=== PATIENT | female | born 1935 | race African-American/Black ===

== ENCOUNTER 2018-09-16 08:30 | Day surgery (SDC) | payer OTHER ==
[2018-09-16 09:01] LABS: Potassium 4.2 mmol/L (3.5-5.1)
[2018-09-16] MEDS ORDERED: NA CHLORIDE 0.9% 1,000 ML ONE ×2 (09:01→09:10)
[2018-09-16] MEDS ORDERED: PROPOFOL 200 MG/20 ML VIAL IV ONE (09:16)
[2018-09-16] MEDS ORDERED: LIDOCAINE 2% MPF 5 ML VIAL ONE (09:17)
[2018-09-16] MEDS ORDERED: MIDAZOLAM HCL 2 MG/2 ML INJ ONE (09:17)
[2018-09-16] MEDS ORDERED: FENTANYL CITR 100 MCG/2 ML ONE (09:17)
[2018-09-16 09:58] LABS: Absolute Lymphocytes (CBC) 1.5 K/uL (0.7-4.9); Absolute Monocytes 0.5 K/uL (0.1-1.3); Absolute Neutrophil 2.7 K/uL (1.8-8.0); Basophils % 0.4 % (0-1.3); Eosinophils % 1.3 % (0-4.4); Hematocrit 34.7 % (36.0-45.0); Lymphocytes % 30.9 % (15.3-44.8); MPV 10.6 fL (7.6-11.3); Monocytes % 10.9 % (3.3-12.3); RBC Red Blood Cell Count 4.32 M/uL (3.86-4.86)
[2018-09-16] MEDS: LIDOCAINE 1% W/EPI 1:100,000 MDV 50 ML VIAL ONE ×2 (10:05→11:02)
--- NOTE | 2018-09-16 22:21 | OP ---
Date of Procedure: 09/16/2018 Surgeon: Steffanie Stark MD Postoperative Diagnoses: Thickened endometrium, patient with incomplete uterovaginal prolapse. Postoperative Diagnoses: Thickened endometrium, patient with incomplete uterovaginal prolapse, and e ndometrial polyp. Procedures Performed: Hysteroscopy, polypectomy, dilation and curettage. Anesthesia: MAC plus paracervical block. Specimens: Endometrial polyp and curettings. Complications: No complications. Drains: No drains. Condition: Stable. Findings: Posterior wall polyp appears benign, minimal endometrial thickening, scant endometrial cur ettings. Her POP-Q was a -1 to 0 and -4, 5 cm genital hiatus. Moderate to thin perineum. Vaginal l ength 8 cm. Posterior wall 0, -1, -1, and -5. Indications: The patient is an 83-year-old presented with symptomatic vaginal prolapse, for which sh cierra had presented to the emergency room with urinary voiding dysfunction, subsequently referred to me f or evaluation and treatment of her prolapse. As part of this, I ordered a transvaginal ultrasound, w hich showed thickened endometrium. Given the fact that we were going to proceed with prolapse surger y since she declined pessary management. Wanted to make sure that there was no endometrial pathology , for which she needs a hysterectomy. On transvaginal ultrasound results as above, so she was counse led to have hysteroscopy and D and C for cavity visualization and sampling. Description Of Procedure: After informed consent was verified, she was taken back to the OR, placed in a supine fashion on the operating table. MAC was given, she was placed in dorsal lithotomy positi on using Bruno stirrups. Pelvic exam was performed. Lidocaine 1% mixed with 1:100,000 epinephrine was injected at 12 o'clock position, 10 cc on the cervi x and then cervicovaginal junction 5 cc each for a paracervical block. Prep x3 with Betadine was done. SlimLine diagnostic hysteroscope was used to enter the uterine cavit y through the cervix under direct vision. No problems were encountered getting into the uterine cavi ty. The cavity was filled with whitish snot like material. Once this was rinsed out with the saline , then we were able to visualize the polyp. Both tubal ostia were visualized and normal. No other a dhesions were seen. The scope was pulled out after scratching out the base of the polyp from all jarvis es, then Mayo's forceps was used to picker tender the polyp and remove it. The entire polyp was removed and this was verified with hysteroscopy again and then scope was removed. Curettings were performed . They were handed out for permanent pathology along with the polyp. All instruments were removed. Instrument, needle, and sponge counts were correct at the end of the case. Patient tolerated the pr ocedure well. She has a followup appointment to see me in 1 week. Her prolapse management plan will be done at that point as well; however, initially the thought of performing a colpocleisis as an opt ion is probably not a good option given the fact that patient's uterine support appears to be not as weak as it was assessed previously. So, we will reassess the patient before deciding about her prola pse management surgery. TAMMY Voice ID: [id number] Report ID: [id number]
== END 2018-09-16 12:20 | disposition home or self-care (01) ==
LOC: OR 08:30
PROVIDERS: ATTEND Obstetrics & Gynecology
PROC: 0UDB7ZX Extraction of Endometrium, Via Natural or Artificial Opening, Diagnostic (ICD-10-PCS; 2018-09-16)
PROC: 0UJD8ZZ Inspection of Uterus and Cervix, Via Natural or Artificial Opening Endoscopic (ICD-10-PCS; 2018-09-16)
PROC: 0UB97ZX Excision of Uterus, Via Natural or Artificial Opening, Diagnostic (ICD-10-PCS; principal; 2018-09-16 09:00)
DX: N84.0 Polyp of corpus uteri (principal); N81.2 Incomplete uterovaginal prolapse; E11.9 Type 2 diabetes mellitus without complications; E78.5 Hyperlipidemia, unspecified; I10 Essential (primary) hypertension; Z79.82 Long term (current) use of aspirin; Z79.4 Long term (current) use of insulin; Z79.899 Other long term (current) drug therapy
CPT/HCPCS: 36415; 58558; 80048; 85025; 88305; J2704; J3010; J7030 ×2; J2250

== ENCOUNTER 2018-10-21 08:31 | Observation (INO) | payer OTHER ==
[2018-10-19 14:59] LABS: Absolute Lymphocytes (CBC) 1.7 K/uL (0.7-4.9); Absolute Monocytes 0.5 K/uL (0.1-1.3); Absolute Neutrophil 2.2 K/uL (1.8-8.0); Basophils % 0.8 % (0-1.3); Eosinophils % 1.1 % (0-4.4); Hematocrit 36.3 % (36.0-45.0); Lymphocytes % 38.2 % (15.3-44.8); MPV 9.9 fL (7.6-11.3); Monocytes % 10.2 % (3.3-12.3); RBC Red Blood Cell Count 4.47 M/uL (3.86-4.86)
[2018-10-19 15:00] LABS: Protime INR 1.03
[2018-10-19 15:01] LABS: Urine Appearance CLEAR; Urine Bilirubin NEGATIVE (NEG); Urine Blood NEGATIVE (NEG); Urine Color YELLOW; Urine Glucose NEGATIVE (NEG); Urine Protein NEGATIVE (NEG); Urine Specific Gravity <=1.005 (1.005-1.030); Urine Urobilinogen 0.2 mg/dL (0.2-1.0)
[2018-10-19 15:07] LABS: Urine Microscopic Reflex NO UMIC
[2018-10-21] MEDS ORDERED: CEFAZOLIN 2GM (PREMIX IV) 2 GM/50 ML BAG ONE (09:31)
[2018-10-21] MEDS ORDERED: NA CHLORIDE 0.9% 1,000 ML ONE (09:31)
[2018-10-21] MEDS ORDERED: PROPOFOL 200 MG/20 ML VIAL IV ONE (10:51)
[2018-10-21] MEDS ORDERED: CEFAZOLIN 1GM (PREMIX IV) 1 GM/50 ML BAG ONE (10:51)
[2018-10-21] MEDS ORDERED: NA CHLORIDE 0.9% 100 ML IV ONE (10:51)
[2018-10-21] MEDS ORDERED: ROCURONIUM 50 MG/5 ML VIAL IV ONE (10:52)
[2018-10-21] MEDS ORDERED: FENTANYL CITR 100 MCG/2 ML ONE ×2 (10:52→12:28)
[2018-10-21] MEDS ORDERED: ONDANSETRON 4 MG/2 ML VIAL ONE (10:53)
[2018-10-21] MEDS ORDERED: LIDOCAINE 2% MPF 5 ML VIAL ONE (10:53)
[2018-10-21] MEDS: VASOPRESSIN 20 UNIT/ML VIAL ONE ×2 (12:00→12:49)
[2018-10-21] MEDS ORDERED: NEOSTIGMINE 1 MG/ML -5 ML SYRINGE ONE (14:41)
[2018-10-21] MEDS ORDERED: GLYCOPYRROLATE 0.2 MG/ML SYR ONE (14:41)
[2018-10-21] MEDS ORDERED: HYDROMORPHONE HCL 2 MG/ML inj ONE (15:40)
[2018-10-21] MEDS ORDERED: MORPHINE 4 MG/ML SYR IV PRN ×2 (15:40→15:46)
[2018-10-21] MEDS ORDERED: ACETAMINOPHEN 325 MG TABLET PO PRN (15:48)
[2018-10-21] MEDS ORDERED: PROMETHAZINE 25 MG/ML VIAL IV PRN (15:49)
[2018-10-21] MEDS: Ringers Lactate 1,000 ML IV SCH (16:24)
[2018-10-21] MEDS ORDERED: INFLUENZA VACCINE (for 3y+) 0.5 ML DOSE IMVAC ONE (18:00)
[2018-10-21] MEDS ORDERED: PNEUMOCOCCAL VACCINE 0.5 ML IMVAC ONE (18:00)
[2018-10-21 18:41] LABS: Absolute Monocytes 0.6 K/uL (0.1-1.3); Absolute Neutrophil 7.3 K/uL (1.8-8.0); Basophils % 0.3 % (0-1.3); Eosinophils % 0.2 % (0-4.4); Hematocrit 37.1 % (36.0-45.0); Lymphocytes % 11.4 % (15.3-44.8); MPV 10.7 fL (7.6-11.3); Monocytes % 6.8 % (3.3-12.3); RBC Red Blood Cell Count 4.54 M/uL (3.86-4.86)
[2018-10-21] MEDS ORDERED: LIDOCAINE 5% OINT 30 GM TUBE TOP PRN (22:42)
[2018-10-21] MEDS ORDERED: TYLENOL ARTHRITIS PO PRN (22:43)
[2018-10-21] MEDS ORDERED: DEXTROSE ORAL 40% 15 GM TUBE PO PRN (22:45)
[2018-10-22] MEDS: Ringers Lactate 1,000 ML IV SCH ×2 (01:33→12:41)
[2018-10-22] MEDS ORDERED: CARVEDILOL 3.125 MG TAB PO SCH (06:00)
[2018-10-22 07:32] LABS: Absolute Lymphocytes (CBC) 1.5 K/uL (0.7-4.9); Absolute Monocytes 0.8 K/uL (0.1-1.3); Absolute Neutrophil 5.4 K/uL (1.8-8.0); Basophils % 0.5 % (0-1.3); Eosinophils % 0.4 % (0-4.4); MPV 10.6 fL (7.6-11.3); RBC Red Blood Cell Count 3.96 M/uL (3.86-4.86)
[2018-10-22] MEDS ORDERED: INSULIN REGULAR SQ SCH (08:00)
[2018-10-22] MEDS ORDERED: INSULIN ISOPHANE SQ SCH (08:00)
[2018-10-22] MEDS ORDERED: VITAMIN D 1000 UNIT TAB PO SCH (09:00)
[2018-10-22] MEDS ORDERED: ASPIRIN 81 MG CHEWABLE TABLET PO SCH (09:00)
[2018-10-22] MEDS ORDERED: TRAVATAN Z EACH EYE SCH (09:00)
[2018-10-22] MEDS ORDERED: FUROSEMIDE 40 MG TABLET PO SCH (09:00)
[2018-10-22] MEDS ORDERED: MULTIVITAMIN TAB PO SCH (09:00)
[2018-10-22] MEDS ORDERED: ESTRADIOL VAG SCH (09:00)
[2018-10-22] MEDS ORDERED: D50W 25 GM/50 ML SYRINGE IV PRN ×2 (12:30→15:04)
[2018-10-22] MEDS ORDERED: GLUCAGON 1 MG/VIAL IM PRN ×2 (12:30→15:04)
[2018-10-22] MEDS ORDERED: INSULIN -REGULAR HUMAN 50 UNIT/0.5 ML ML SQ ONE ×3 (12:32→15:12)
[2018-10-22 13:47] LABS: Potassium 4.9 mmol/L (3.5-5.1)
[2018-10-22] MEDS ORDERED: CEFAZOLIN/NS 1gm 1 GM/50 ML BAG IVPB SCH (15:02)
[2018-10-22] MEDS: CEFAZOLIN 1GM (PREMIX IV) 1 GM/50 ML BAG IV SCH ×2 (15:28→17:00)
[2018-10-22] MEDS ORDERED: LACTULOSE 20 GM/30 ML UCUP PO PRN (15:29)
--- NOTE | 2018-10-22 15:35 | P.CNS ---
Date of Consult: 10/22/18 Reason for Consult: Medical management, Hyperglycemia Requesting Physician: Steffanie Stark Primary Care Provider: Dr. Galdamez Chief Complaint: Elevated BS History of Present Illness: 83-year-old female in the hospital for incomplete uterovaginal prolapse and stress urinary incontinence. Patient had cystocele repair with Uphold graft colpopexy/mid urethral sling sacrospinous ligament fixation, rectocele repair/perineorrhaphy cystoscopy by [facility]-Dr. Stark. I was consulted to address medical management including hyperglycemia, hypertension. Patient had procedure today. She was to be discharge but her blood sugars were elevated. She also had urinary retention. Alarcon catheter now in place. Blood sugars elevated above 400. Most recent lab shows hemoglobin 10.2. Sodium 131, potassium 4.9, BUN of 33, creatinine 1.2 with a GFR 34. Patient did not receive her insulin medication last night. The patient doing well this time. No complaints noted. Daughter at bedside. Patient with past medical history of diabetes, hypertension, hyperlipidemia, chronic renal disease. Allergies No Known Allergies Allergy (Verified 10/21/18 08:06) Home medications list reviewed: Yes Home Medications: Acetaminophen [Tylenol Arthritis] 2 tab PO PRN PRN 09/16/18 Aspirin [Aspirin EC 81 MG] 81 mg PO DAILY 09/16/18 Carvedilol [Coreg] 3.125 mg PO [id number] 09/16/18 Cholecalciferol (Vitamin D3) [Vitamin D 1000 Iu Tab] 1,000 unit PO DAILY Estradiol [Estrace] 1 kaz VG DAILY 09/16/18 Furosemide [Lasix] 40 mg PO DAILY 09/16/18 Insulin NPH Hum/Reg Insulin Hm [Humulin 70/30 Kwikpen] 30 unit SQ DAILY AT SUPPER 09/16/18 Insulin NPH Hum/Reg Insulin Hm [Humulin 70/30 Kwikpen] 50 unit SQ BREAKFAST LIDOCAINE 5% Ointment [Lidocaine HCl*] 1 appl TP DAILYPRN PRN 09/16/18 Losartan Potassium 100 mg PO DAILY AFTER SUPPER 09/16/18 Multivitamin [Multivitamins] 1 each PO DAILY 09/16/18 Simvastatin 40 mg PO DAILY 09/16/18 Travoprost [Travatan Z*] 1 gtt EACH EYE DAILY 09/16/18 Dextrose [Glucose] 2 gm PO PRN PRN 10/21/18 - Past Medical/Surgical History Diabetic: Yes -: Diabetes mellitus type 2, insulin dependent -: HTN -: Hyperlipidemia -: Cataract -: Cystocele/rectocele -: Chronic renal disease stage III -: CAD with prior CABG -: CABG -: Bilateral tubal ligation -: Cholecystectomy -: Cataract removal -: Hysteoscopy/D&C Psychosocial/ Personal History: Patient is a . Lives at home. - Family History Mother Medical History: Heart disease, Diabetes Father History Unknown: Yes - Social History Smoking Status: Never smoker Alcohol use: No CD- Drugs: No Caffeine use: No Place of Residence: Home Review of Systems General: Unremarkable Eyes: Unremarkable ENT: Unremarkable Respiratory: Unremarkable Cardiovascular: Unremarkable Gastrointestinal: Constipation, As per HPI Genitourinary: Retention, As per HPI Musculoskeletal: Unremarkable Integumentary: Unremarkable Neurological: Unremarkable Lymphatics: Unremarkable Physical Examination Temp Pulse Resp BP Pulse Ox 98.3 F 88 18 141/65 H 98 10/22/18 12:00 10/22/18 12:00 10/22/18 12:00 10/22/18 12:00 10/22/18 12:00 General: Alert, In no apparent distress, Oriented x3, Cooperative HEENT: Atraumatic, Mucous membr. moist/pink Neck: Supple Respiratory: Clear to auscultation bilaterally, Normal air movement Cardiovascular: Normal pulses, Regular rate/rhythm Gastrointestinal: Normal bowel sounds, Soft and benign, Non-distended, No tenderness, No masses, No rebound, No guarding Musculoskeletal: No erythema, No tenderness, No warmth Integumentary: No tenderness/swelling, No erythema, No warmth, No cyanosis Neurological: Normal speech, Normal strength at 5/5 x4 extr, Normal tone, Normal affect Urinary: Alarcon catheter Laboratory Data (last 24 hrs) 10/22/18 13:21: Sodium 131 L, Potassium 4.9, BUN 33 H, Creatinine 1.74 H, Glucose 456 H* 10/22/18 07:03: WBC 7.7 D, Hgb 10.2 L, Hct 32.0 L, Plt Count 139 L 10/21/18 18:24: WBC 9.0 D, Hgb 12.0, Hct 37.1, Plt Count 157 Conclusions/Impression: Impression: Incomplete uterovaginal prolapse and stress urinary incontinence status post cystocele repair with Uphold graft colpopexy/mid urethral sling sacrospinous ligament fixation, rectocele repair/perineorrhaphy cystoscopy Urinary tension now with Alarcon catheter Diabetes mellitus type 2, insulin dependent Hypertension Hyperlipidemia Chronic renal disease stage stage III Obesity, BMI 34.1 Plan: Incomplete uterovaginal prolapse and stress urinary incontinence status post cystocele repair with Uphold graft colpopexy/mid urethral sling sacrospinous ligament fixation, rectocele repair/perineorrhaphy cystoscopy: Patient doing well post operatively. Patient had urinary retention post operatively, now with Alarcon catheter. Will order physical therapy if okay with gynecology to ambulate patient. Will provide medication for pain stool softener. Anticipate discharge when okay by gynecology. Urinary retension now with Alarcon catheter: Stable. Alarcon catheter in place. Diabetes mellitus type 2, insulin dependent: Blood sugars elevated as patient did not receive her insulin last night. Will start insulin sliding scale and adjust for moderate protocol. Will restart home medication including insulin 70 /30 50 units subcu every a.m. and 30 units subcu p.m. Continue to monitor and adjust insulin. Anticipate better control by tomorrow. Will discuss case with gynecology. Thank you for referral. Hypertension: Will restart home medication including losartan 100 mg daily and carvedilol 3.25 mg 1 pill twice daily. Will monitor and address appropriately. Hyperlipidemia: Restart home medication of Zocor 10 mg Chronic renal disease stage stage III: Patient on IV fluids. Will monitor and adjust appropriately. Continue monitor lab. Obesity, BMI 34.1: Address education Time Spent Managing Pts care (In Minutes): 55
[2018-10-22] MEDS ORDERED: INSULIN -REGULAR HUMAN 50 UNIT/0.5 ML ML SQ SCH ×2 (16:30→19:40)
[2018-10-22] MEDS ORDERED: HUMALOG MIX 75/25 100 UNITS/ML SQ SCH (17:00)
[2018-10-22] MEDS ORDERED: INSULIN ISOPHANE HUMAN SQ SCH (17:00)
[2018-10-22] MEDS ORDERED: CEFAZOLIN 1GM (PREMIX IV) 1 GM/50 ML BAG IV SCH (17:00)
[2018-10-22] MEDS ORDERED: INSULIN NPH HUM SQ SCH (17:00)
[2018-10-22] MEDS ORDERED: REG INSULIN SQ SCH (17:00)
[2018-10-22] MEDS ORDERED: INSULIN REGULAR HUMAN SQ SCH (17:00)
[2018-10-22] MEDS ORDERED: LOSARTAN POTASSIUM 50 MG TABLET PO SCH ×2 (17:30)
[2018-10-22] MEDS ORDERED: HOME MED 1 EA UNK (Losartan Potassium [Losartan Potassium] 100 MG) PO SCH (17:30)
--- NOTE | 2018-10-22 19:40 | P.PN ---
Subjective Date of Service: 10/22/18 Primary Care Provider: Dr. Galdamez Chief Complaint: Elevated BS denies any pelvic pain vag pack out no Vb oob to chair no SOB or CP angelica diet unable to void gunn replaced no flatus yet lying in bed comfortable c/o some sorethroat Review of Systems 10-point ROS is otherwise unremarkable Gastrointestinal: Unremarkable Genitourinary: Retention, Unremarkable Physical Examination - Vital Signs Temperature: 98.7 F Blood Pressure: 162/69 Pulse: 93 Respirations: 17 Pulse Ox (%): 95 - Physical Exam General: Alert, In no apparent distress, Oriented x3, Cooperative HEENT: Atraumatic, PERRLA Neck: 2+ carotid pulse no bruit, Without JVD or thyroid abnormality Respiratory: Clear to auscultation bilaterally Cardiovascular: Regular rate/rhythm Gastrointestinal: Normal bowel sounds, Soft and benign, Non-distended, No tenderness Neurological: Normal gait, Normal speech Urinary: Gunn catheter External genitalia: Deferred - Studies Laboratory Data (last 24 hrs) 10/22/18 13:21: Sodium 131 L, Potassium 4.9, BUN 33 H, Creatinine 1.74 H, Glucose 456 H* 10/22/18 07:03: WBC 7.7 D, Hgb 10.2 L, Hct 32.0 L, Plt Count 139 L Assessment And Plan - Current Problems (Diagnosis) (1) Incomplete uterovaginal prolapse Current Visit: Yes Status: Acute Plan: s/p cystocele repair with synthetic graft augmentation uterine prolapse repaired with bilateral sacrospinous suspension colpopexy doing well restart ancef 1gm q8h bladder retention postop gunn replaced discharge home with gunn till thursday remove mon am at 6 and come to office 830am for a voiding trial (2) Rectocele Current Visit: Yes Status: Acute Plan: start fiber and stool softener daily (3) Stress incontinence Current Visit: Yes Status: Acute Plan: no problems with this (4) Type 2 diabetes mellitus with hyperglycemia Current Visit: Yes Status: Acute - Plan hyperglycemia postop insulin sliding scale now freq FS and control of this restarted home meds hospitalist consult done restarted on anti HTn and diuretics ambulate SCDs reg diet may need to stop iv fluids
[2018-10-22] MEDS ORDERED: CEPACOL LOZENGES PO PRN (19:46)
[2018-10-22] MEDS ORDERED: ATORVASTATIN 20 MG TAB PO SCH ×2 (21:00→22:38)
[2018-10-22] MEDS: FUROSEMIDE 40 MG TABLET PO SCH (22:07)
[2018-10-23] MEDS: CEFAZOLIN 1GM (PREMIX IV) 1 GM/50 ML BAG IV SCH ×2 (00:59→07:52)
[2018-10-23 05:12] LABS: Absolute Lymphocytes (CBC) 2.1 K/uL (0.7-4.9); Absolute Monocytes 0.6 K/uL (0.1-1.3); Absolute Neutrophil 4.8 K/uL (1.8-8.0); Basophils % 0.5 % (0-1.3); Eosinophils % 1.3 % (0-4.4); Hematocrit 33.3 % (36.0-45.0); Lymphocytes % 27.3 % (15.3-44.8); MPV 10.3 fL (7.6-11.3); Monocytes % 8.4 % (3.3-12.3); RBC Red Blood Cell Count 4.18 M/uL (3.86-4.86)
[2018-10-23 05:19] LABS: Magnesium 2.1 mg/dL (1.8-2.4); Potassium 3.9 mmol/L (3.5-5.1)
[2018-10-23] MEDS ORDERED: CARVEDILOL 3.125 MG TAB PO SCH (06:00)
[2018-10-23] MEDS: FUROSEMIDE 40 MG TABLET PO SCH (07:50)
[2018-10-23] MEDS ORDERED: INSULIN ISOPHANE SQ SCH (08:00)
[2018-10-23] MEDS ORDERED: INSULIN REGULAR SQ SCH (08:00)
[2018-10-23] MEDS ORDERED: HUMALOG MIX 75/25 100 UNITS/ML SQ SCH (08:00)
[2018-10-23] MEDS: INSULIN -REGULAR HUMAN 50 UNIT/0.5 ML ML SQ SCH ×2 (08:01→12:15)
--- NOTE | 2018-10-23 08:30 | P.PN ---
Subjective Date of Service: 10/23/18 Primary Care Provider: Dr. Galdamez Chief Complaint: Elevated BS Subjective: Other (patient improved. now on her regular regimen of medication.) Physical Examination - Vital Signs Temperature: 98.7 F Blood Pressure: 130/60 Pulse: 96 Respirations: 24 Pulse Ox (%): 93 - Physical Exam General: Alert, In no apparent distress, Oriented x3, Cooperative HEENT: Atraumatic Neck: Supple Respiratory: Clear to auscultation bilaterally, Normal air movement Cardiovascular: Normal pulses, Regular rate/rhythm Gastrointestinal: Normal bowel sounds, Soft and benign, Non-distended, No tenderness, No masses, No rebound, No guarding Musculoskeletal: No erythema, No tenderness, No warmth Integumentary: No erythema, No warmth, No cyanosis Neurological: Normal speech, Normal strength at 5/5 x4 extr, Normal tone, Normal affect Urinary: Gunn catheter - Studies Laboratory Data (last 24 hrs) 10/23/18 04:25: Sodium 142, Potassium 3.9, BUN 21 H, Creatinine 1.18, Glucose 193 H, Magnesium 2.1 10/23/18 04:25: WBC 7.7, Hgb 10.7 L, Hct 33.3 L, Plt Count 142 L 10/22/18 13:21: Sodium 131 L, Potassium 4.9, BUN 33 H, Creatinine 1.74 H, Glucose 456 H* Medications List Reviewed: Yes Assessment & Plan Discharge Plan: Home Plan to discharge in: 24 Hours Physician Review Additional Text: Impression: Incomplete uterovaginal prolapse and stress urinary incontinence status post cystocele repair with Uphold graft colpopexy/mid urethral sling sacrospinous ligament fixation, rectocele repair/perineorrhaphy cystoscopy Urinary tension now with Gunn catheter Diabetes mellitus type 2, insulin dependent Hypertension Hyperlipidemia Chronic renal disease stage stage III Obesity, BMI 34.1 Plan: Incomplete uterovaginal prolapse and stress urinary incontinence status post cystocele repair with Uphold graft colpopexy/mid urethral sling sacrospinous ligament fixation, rectocele repair/perineorrhaphy cystoscopy: Patient doing well post operatively. Patient with gunn catheter. I anticipate [facility] to discharge patient today. She will likely require gunn catheter for a couple of days. Urinary retension now with Gunn catheter: Stable. Gunn catheter in place. Diabetes mellitus type 2, insulin dependent: Blood sugars now better controlled as her regular regimen of Insulin restarted yesterday. She may continue with her meds at home. Recommend to maintain BS below 200. She is to monitor her BS closely. If still elevated at home then she will need to contact her PCP to further adjust. Hypertension: She may continue with her losartan 100 mg daily and carvedilol 3.25 mg 1 pill twice daily. Will monitor and address appropriately. Hyperlipidemia: She may continue with her Zocor 10 mg Chronic renal disease stage stage III: May DC IV fluids as per [facility]. Continue monitor lab. Obesity, BMI 34.1: Address education Time Spent Managing Pts Care (In Minutes): 55
[2018-10-23] MEDS ORDERED: DOCUSATE NA 100 MG CAP PO SCH (09:00)
[2018-10-23] MEDS ORDERED: TRAVOPROST 0.004% 2.5ML OPTH EACH EYE SCH (09:00)
[2018-10-23] MEDS ORDERED: HOME MED 1 EA UNK (Simvastatin [Simvastatin] 40 MG) PO SCH (09:00)
[2018-10-23] MEDS ORDERED: INFLUENZA VACCINE (for 3y+) 0.5 ML DOSE IMVAC ONE (10:00)
[2018-10-23] MEDS: PNEUMOCOCCAL VACCINE 0.5 ML IMVAC ONE ×2 (10:00→10:20)
[2018-10-23] MEDS ORDERED: POLYETHYL GLY 3350 17 GM/DOSE PO PRN (13:01)
--- NOTE | 2018-10-23 13:49 | P.PN ---
Subjective Date of Service: 10/23/18 Primary Care Provider: Dr. Galdamez Chief Complaint: Elevated BS Subjective: No new changes, Doing well (angelica diet, +flatus, no BM, gunn in place , no VB) denies any pelvic pain vag pack out no Vb oob to chair no SOB or CP angelica diet unable to void gunn replaced no flatus yet lying in bed comfortable c/o some sorethroat Review of Systems 10-point ROS is otherwise unremarkable Physical Examination - Vital Signs Temperature: 97.3 F Blood Pressure: 134/61 Pulse: 78 Respirations: 16 Pulse Ox (%): 98 - Physical Exam General: Alert, In no apparent distress, Oriented x3 HEENT: PERRLA Neck: Without JVD or thyroid abnormality Respiratory: Clear to auscultation bilaterally Cardiovascular: Regular rate/rhythm Gastrointestinal: Normal bowel sounds Neurological: Abnormal strength (walks with support) Urinary: Gunn catheter External genitalia: Deferred - Studies Laboratory Data (last 24 hrs) 10/23/18 04:25: Sodium 142, Potassium 3.9, BUN 21 H, Creatinine 1.18, Glucose 193 H, Magnesium 2.1 10/23/18 04:25: WBC 7.7, Hgb 10.7 L, Hct 33.3 L, Plt Count 142 L 10/22/18 13:21: Sodium 131 L, Potassium 4.9, BUN 33 H, Creatinine 1.74 H, Glucose 456 H* Medications List Reviewed: Yes Assessment And Plan - Current Problems (Diagnosis) (1) Incomplete uterovaginal prolapse Current Visit: Yes Status: Acute Plan: s/p cystocele repair with synthetic graft augmentation uterine prolapse repaired with bilateral sacrospinous suspension colpopexy doing well restart ancef 1gm q8h bladder retention postop gunn replaced discharge home with gunn till thursday remove mon am at 6 and come to office 830am for a voiding trial doing well good UO keep gunn till thursday morning remove at 6am and be back to office at 830 for a voiding trial, explained to pt who und stop ancef and augmentin 500bid x7d Rx done for home understands and her daughter with her as well (2) Rectocele Current Visit: Yes Status: Acute Plan: start fiber and stool softener daily restarted this and miralax and lactulose given has written instructions for bowel regimen (3) Stress incontinence Current Visit: Yes Status: Acute Plan: no problems with this (4) Type 2 diabetes mellitus with hyperglycemia Current Visit: Yes Status: Acute - Plan hyperglycemia postop insulin sliding scale now freq FS and control of this restarted home meds hospitalist consult done restarted on anti HTn and diuretics ambulate SCDs reg diet may need to stop iv fluids better control today discharge home diet and compliance with meds and impact on risk of infection and healing delays reviewed restart all her own meds at home if no VB restart [id number] thursday LE with 1+edema, no calf tenderness keep both compression stockings and keep ambulating for VTE prophylaxis Physician Review Additional Text: Impression: Incomplete uterovaginal prolapse and stress urinary incontinence status post cystocele repair with Uphold graft colpopexy/mid urethral sling sacrospinous ligament fixation, rectocele repair/perineorrhaphy cystoscopy Urinary tension now with Gunn catheter Diabetes mellitus type 2, insulin dependent Hypertension Hyperlipidemia Chronic renal disease stage stage III Obesity, BMI 34.1 Plan: Incomplete uterovaginal prolapse and stress urinary incontinence status post cystocele repair with Uphold graft colpopexy/mid urethral sling sacrospinous ligament fixation, rectocele repair/perineorrhaphy cystoscopy: Patient doing well post operatively. Patient with gunn catheter. I anticipate [facility] to discharge patient today. She will likely require gunn catheter for a couple of days. Urinary retension now with Gunn catheter: Stable. Gunn catheter in place. Diabetes mellitus type 2, insulin dependent: Blood sugars now better controlled as her regular regimen of Insulin restarted yesterday. She may continue with her meds at home. Recommend to maintain BS below 200. She is to monitor her BS closely. If still elevated at home then she will need to contact her PCP to further adjust. Hypertension: She may continue with her losartan 100 mg daily and carvedilol 3.25 mg 1 pill twice daily. Will monitor and address appropriately. Hyperlipidemia: She may continue with her Zocor 10 mg Chronic renal disease stage stage III: May DC IV fluids as per [facility]. Continue monitor lab. Obesity, BMI 34.1: Address education
--- NOTE | 2018-10-24 02:31 | OP ---
Date of Procedure: 10/21/2018 Surgeon: Steffanie Stark MD Land Developer: Cindy Gutiérrez. 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 Procedures Performed: Anterior repair with Uphold synthetic graft augmentation, bilateral sacrospino us ligament fixation, colpopexy, rectocele repair, mid urethral sling (TVT-O), cystoscopy, rectocele repair, and perineorrhaphy. Anesthesia: General. Specimens: No specimens. Complications: No complications. Drains: Alarcon catheter and vaginal packing. Ebl: Less than 100. Condition: Stable. Urine Output: About 200. Indication: The patient is an 83-year-old, presented to the ER with uterine prolapse and vaginal dis comfort, voiding dysfunction. She was then referred to me. She was worked up, found to have stage I I incomplete uterovaginal prolapse. Discussion of pessary fitting and management residential with this as the conservative method of treatment was discussed. The patient did completely decline the use o r taking care of the pessary either by self-care or by coming to the office. She wanted to have a chan rgical treatment option. Surgical treatment options including vaginal and abdominal repairs and vagi nal partial closure were all discussed with the patient. She was comfortable with not being sexually active, and if closure had to be done and was feasible, she was completely accepting of this; if not , we discussed that synthetic graft augmented repair would be preferable given her advanced stage of prolapse. According to her history, her prolapse could have been greater than stage II; however, I h ave not been able to demonstrate that clinically on exam on multiple visits during the patient's care in the office. Graft augmented repair would be the preferred method for results superintendent terminal with lower risk of recurre nce; however given the patient being diabetic, over the age of 82, all the risks of surgery were disc ussed with the patient, increased risk of delayed healing and vaginal mesh exposure, erosions, or inf ection leading to removal of the mesh or trimming of the mesh with further surgery were all discussed . Urinary retention postoperatively on a short-term basis was expected and showed 50% chance of havi ng this, and the patient was aware that she could go home with Alarcon catheter and was comfortable wit h taking care of this. On urodynamic testing, occult stress urinary incontinence was identified and so placing a mid urethral sling was discussed with the patient and she was consented. 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 Muro, her A1c wa s less than 7, we proceeded to schedule her surgery and brought her to the OR. Description Of Procedure: After informed consent was verified, 2 g of Ancef was given, the patient w as taken back to OR, placed in a supine fashion on the operating table. After general anesthesia was given, lower abdomen, vulva, vagina, and perineum were prepped and draped in a sterile fashion. Fol ey was placed to drain the bladder. A #12 had to be used since the urethra was narrow. This was cla mped and retracted superiorly after the bladder was drained. Right superior to the uterovesical junction, an Allis clamp was placed in the midline. Then right ab ove the level of the cervix in the proximal most part of the anterior vaginal wall, another Allis was placed. Two Allis were placed in the anterior and posterior lips of the cervix. I could not retrac t it. I could not put traction on it enough to get it lower than -3 for point C, so decided that col pocleisis would not be feasible for this patient, so decided to do the anterior repair and posterior repair. Anterior repair with graft augmentation. After dilute vasopressin 20 units mixed in 60 cc of normal saline, 20 units was injected in the midli ne on 2 sides at a depth so that this could open up the vesicovaginal space. A #15 blade was used to incise the vaginal epithelium and subepithelium and the endopelvic fascia. Once the flaps were rais ed on both sides, the bladder was dissected all the way to the lateral sulci and the paravesical spac e. The ischial spines were identified. The sacrospinous ligaments were cleaned up. The bladder was taken down all the way to the level of the cervix, where the cervix was exposed and all the way to t he urethrovesical junction. A #3-0 Vicryl was used to plicate the bladder with a pursestring suture to reduce the bulge. Then, Uphold graft was opened. The mesh arms were placed 2 cm medial and poste rior to the ischial spine on the sacrospinous ligament, firstly on the left side, then on the right s andreea by retracting the bowel medially with the finger while deploying the suture. Capio de vice was used. A SLIM Capio was used to place these 2 sutures. I had to do the bite twice on the le ft side because the first was unsatisfactory and too close to the spine. Optimal placement was confi rmed by placing traction on the dilators on each side. Then, the mesh was tensioned to pull the dila tors through. The proximal part of the mesh was attached to the cervix in the center and on both jarvis es with 3-0 Vicryl sutures. Then, the anterior part of the graft was attached to the area under the UVJ in the center and on both sides with 3-0 Vicryl again. Then, vaginal closure was done with 2-0 V icryl after making sure that the area at the level of the cervix was closed together with a simple 2- 0 Vicryl stitch, then continuous running lock sutures were placed about 2 cm, then tensioned this gra ft completely pulling the point C to -6. The mesh was straightened out. No folds were present. I m panfilo sure that this is flat and lying under the bladder. Rest of the closure was done. There was a s mall amount of bleeding at this point; however, the closure was completed. The blood was drained out through the small opening left at the end before closing the last bit. Once this was closed, the va whit was packed with a lap sponge for about 2 minutes. Then, after removing this, no bleeding was se en. No expansion under the graft was seen. So, I went ahead and did the mid urethral sling. The mid urethral area was identified by gently identifying the neck of the bladder with the Alarcon. T hen, the mid urethral area held with 2 Allis clamps, injected with dilute vasopressin. Markings for the exit points 2 cm lateral and 1 cm superior to the horizontal line dropped at the level of the ext ernal meatus outside the groin creases were marked. Then, a 15 blade was used to make an incision 1 cm in the midline. Dissection was carried with the [place] at 45 degree angle to the horizon lizette and vertical planes towards the ipsilateral shoulder, hugging the inferior pubic ramus, entering the obturator space, perforating the obturator membrane, firstly on the right, the track was then exp anded by pulling on the scissors with tips open. Similar dissection was performed on the opposite si de without any effort. Wing guide was placed. The sling was passed, and the spike was passed withou t any problems. Plastic dilator sheath was held with a Susan and needle removed. Dilator sheath was pulled through until the plastic sheath was visible and the dilator was cut. The sheath and the mes h were held on the Susan. On opposite side, similar pass was done, and once the dilator was cut, Met zenbaum were placed underneath mid urethral area below the sling and between the urethra and the slin g and tensioned appropriately. The sheaths were pulled out. The mesh was trimmed very flushed with the skin and vaginal closure with 3-0 Vicryl in a continuous running fashion. The exit points were s ealed with the help of Dermabond. Cystoscopy was performed after Alarcon was removed with a 17-[place] sheath, 30-degree lens, and normal saline. There were excellent streams of urine from both ureteric orifices. No evidence of any traum a to the bladder or foreign body or any tumors. The entire bladder was visualized. The bladder was drained. Alarcon was replaced. The perineal body needed repair and decrease in the genital hiatus diameter. Posterior repair had to be done; however, there was no enterocele that was identified after the anterior repair was done. The perineum was then infiltrated with dilute vasopressin 20 cc on the perineum and 10 cc on the post erior vaginal wall. Triangular skin incision made with a 15 blade, and the skin removed on the perin eum and the posterior compartment was entered. This was dense and thick. I was able to open it abou t at least 5 cm from the perineal body which included the vestibule and the posterior wall. As I got up there, the rectovaginal fascia was dissected. There was weakness in here. However, the biggest weakness was the perineal body. So, the vaginal epithelium was trimmed probably about 1 cm on each s andreea. Plication of the rectovaginal septum was done on the middle with continuous 2-0 Vicryl in a [facility] continuous running fashion. Once this was tied together just above the level of the perineal body, the perineal body was repaired with 3 independent 2-0 Vicryl sutures. A fourth one was placed to narrow the introitus to about 3.5 cm. Once this was done, the vaginal epithelium was closed in a continuous running fashion with 3-[address] down to the perineal body in a subcutaneous a nd subcuticular fashion. Rectal exam was performed. No evidence of any trauma or foreign body here or sutures. The area of the sacrospinous sutures was also palpated through the rectum and no evidenc e of any trauma here. The patient had hard stool in the rectum and this was left alone. Instrument, needle, and sponge counts were done and were correct at the end of the case. The patient tolerated the procedure well. A Alarcon was left in place and vaginal packing was placed snugly. The re was no expanding hematoma in the anterior compartment. The patient was recovered from anesthesia and taken to the PACU in stable condition. ALEN/KRISTIE Voice ID: [id number] Report ID: [id number]
== END 2018-10-23 15:33 | disposition home or self-care (01) ==
LOC: OR 08:31 → 2ND 15:20 → OR 10-22 16:17
PROVIDERS: ADMIT Obstetrics & Gynecology; ATTEND Obstetrics & Gynecology
PROC: 0JUC0JZ Supplement of Pelvic Region Subcutaneous Tissue and Fascia with Synthetic Substitute, Open Approach (ICD-10-PCS; 2018-10-21)
PROC: 0JQC0ZZ Repair Pelvic Region Subcutaneous Tissue and Fascia, Open Approach (ICD-10-PCS; 2018-10-21)
PROC: 0WQNXZZ Repair Female Perineum, External Approach (ICD-10-PCS; 2018-10-21)
PROC: 0TSD0ZZ Reposition Urethra, Open Approach (ICD-10-PCS; principal; 2018-10-21 10:30)
DX: N81.2 Incomplete uterovaginal prolapse (principal); N39.3 Stress incontinence (female) (male); I12.9 Hypertensive chronic kidney disease with stage 1 through stage 4 chronic kidney disease, or unspecified chronic kidney disease; E11.22 Type 2 diabetes mellitus with diabetic chronic kidney disease; N18.3 Chronic kidney disease, stage 3 (moderate); E66.9 Obesity, unspecified; Z68.34 Body mass index [BMI] 34.0-34.9, adult; Z95.1 Presence of aortocoronary bypass graft; Z23 Encounter for immunization
CPT/HCPCS: 36415 ×3; 57260; 57267; 57288; 80048 ×2; 81003; 82962 ×14; 83735; 85025 ×4; 85610; 85730; 86850; 86900; 86901; 90670; 97163; G0008; G0009; G0378 ×2; J0690 ×5; J1170; J2405; J2704; J2710; J3010 ×2; J7030; Q2035

== ENCOUNTER 2018-11-30 09:44 | Emergency (ER) | payer OTHER ==
--- NOTE | 2018-11-30 10:52 | RAD REPORT ---
EXAM DESCRIPTION: CT - Soft Tissue Neck Wo Contr - 11/30/2018 10:41 am CLINICAL HISTORY: Neck pain/ possible foreign body COMPARISON: February 2017 TECHNIQUE: Computed axial tomography of the neck was obtained. IV contrast was not requested. Coron al and sagittal reconstruction was performed. All CT scans are performed using dose optimization technique as appropriate and may include automated exposure control or mA/KV adjustment according to patient size. FINDINGS: The pharynx, tongue base, larynx and subglottic trachea appear unremarkable The parotid, submandibular and thyroid glands appear unremarkable. No lymphadenopathy is seen Fluid within the sinuses. Mild chronic opacification mastoids. A radiopaque foreign body is not visualized within the airway or cervical esophagus. Spondylosis involves the cervical spine. Calcified disc herniation suspected C3-4 IMPRESSION: No acute abnormality displayed
--- NOTE | 2018-11-30 10:59 | ER ---
Nurse's Notes [facility] Name: Lilo Bolaños Age: 83 yrs Sex: Female : 1935 Arrival Date: 11/30/2018 Time: 09:45 Bed 4 Private MD: George Almeida R Diagnosis: Esophageal foreign body,soft plastic Presentation: 11/30 09:50 Presenting complaint: Patient states: Pt reports she bit off a piece of plastic while ss opening something last night and she feels as if the small piece of plastic is still stuck in her throat. Denies SOB. Transition of care: patient was not received from another setting of care. Onset of symptoms was November 29, 2018. Risk Assessment: Do you want to hurt yourself or someone else? Patient reports no desire to harm self or others. Initial Sepsis Screen: Does the patient meet any 2 criteria? No. Patient's initial sepsis screen is negative. Does the patient have a suspected source of infection? No. Patient's initial sepsis screen is negative. Care prior to arrival: None. 09:50 Method Of Arrival: Ambulatory ss 09:50 Acuity: MICHELLE 3 ss Historical: - Allergies: 10:06 No Known Allergies; ss - Immunization history:: Adult Immunizations up to date. - Social history:: Smoking status: Patient/guardian denies using tobacco. - Family history:: not pertinent. - Ebola Screening: : Patient denies exposure to infectious person Patient denies travel to an Ebola-affected area in the 21 days before illness onset. - Hospitalizations: : No recent hospitalization is reported. Screenin:12 Abuse screen: Denies threats or abuse. Denies injuries from another. Nutritional ph screening: No deficits noted. Tuberculosis screening: No symptoms or risk factors identified. Fall Risk None identified. Assessment: 10:15 General: Appears in no apparent distress. comfortable, Behavior is calm, cooperative, ph appropriate for age. Pain: Denies pain. Neuro: Level of Consciousness is awake, alert, obeys commands, Oriented to person, place, time, situation. Cardiovascular: Denies chest pain, nausea, shortness of breath, Capillary refill < 3 seconds in bilateral fingers Patient's skin is warm and dry. Respiratory: Airway is patent Trachea midline Respiratory effort is even, unlabored, Respiratory pattern is regular, symmetrical, Breath sounds are clear bilaterally. GI: Abdomen is flat, non-distended, Patient currently denies abdominal pain, nausea, vomiting. Derm: Skin is intact, is healthy with good turgor, Skin is pink, warm \T\ dry. Musculoskeletal: Circulation, motion, and sensation intact. Range of motion: intact in all extremities. 11:11 Reassessment: Patient appears in no apparent distress at this time. Patient and/or ph family updated on plan of care and expected duration. Pain level reassessed. Patient is alert, oriented x 3, equal unlabored respirations, skin warm/dry/pink. Pt d/c home, instructed to follow up w/ GI if symptoms persist. Vital Signs: 10:06 BP 190 / 71; Pulse 68; Resp 15; Pulse Ox 99% on R/A; Weight 95.25 kg; Height 5 ft. 4 ss in. (162.56 cm); Pain 0/10; 10:06 Body Mass Index 36.05 (95.25 kg, 162.56 cm) ss ED Course: 09:45 Patient arrived in ED. as 09:45 George Almeida MD is Private Physician. as 09:52 Perry Franco MD is Attending Physician. rn 10:04 Triage completed. ss 10:06 Arm band placed on right wrist. ss 10:30 Jennifer Jones RN is Primary Nurse. ph 10:30 Patient has correct armband on for positive identification. Bed in low position. Call ph light in reach. Side rails up X 1. Pulse ox on. NIBP on. Door closed. Noise minimized. Warm blanket given. 10:42 Soft Tissue Neck Wo Contr In Process Unspecified. EDMS 10:58 Sahil Cheng MD is Referral Physician. rn 11:24 No provider procedures requiring assistance completed. Patient did not have IV access ph during this emergency room visit. Administered Medications: No medications were administered Outcome: 10:59 Discharge ordered by . rn 11:24 Patient left the ED. ph 11:24 Discharged to home ambulatory, with family. ph 11:24 Condition: good 11:24 Discharge instructions given to patient, family, Instructed on discharge instructions, follow up and referral plans. Demonstrated understanding of instructions, follow-up care. Signatures: Dispatcher [employer] EDMS Gabriela Xavier as Franco, Perry, Lauren Pelaez MD, rn, JOHNATHON RN ss Jennifer Jones, RN RN ph
--- NOTE | 2018-11-30 10:59 | EDPHYS ---
Physician Documentation [facility] Name: Lilo Bolaños Age: 83 yrs Sex: Female : 1935 Arrival Date: 11/30/2018 Time: 09:45 Bed 4 Private MD: George Almeida R ED Physician Perry Franco HPI: 11/30 10:00 This 83 yrs old Black Female presents to ER via Unassigned with complaints of Foreign rn Body In Throat - Plastic Wrap. 10:00 The patient or guardian reports the patient has a suspected foreign body, of the rn throat. The reported likely foreign body is piece of plastic. Onset: The symptoms/episode began/occurred last night. Current symptoms: foreign body sensation. The patient has not experienced similar symptoms in the past. The patient has not recently seen a physician. Happened last night, no trouble breathing or swallowing, just can't get piece of plastic down, has tried fluids and bread. . Historical: - Allergies: 10:06 No Known Allergies; ss - Immunization history:: Adult Immunizations up to date. - Social history:: Smoking status: Patient/guardian denies using tobacco. - Family history:: not pertinent. - Ebola Screening: : Patient denies exposure to infectious person Patient denies travel to an Ebola-affected area in the 21 days before illness onset. - Hospitalizations: : No recent hospitalization is reported. ROS: 10:00 Constitutional: Negative for fever, chills, and weight loss, Eyes: Negative for injury, rn pain, redness, and discharge, ENT: foreign body sensation in throat Respiratory: Negative for shortness of breath, cough, wheezing, and pleuritic chest pain, Abdomen/GI: Negative for abdominal pain, nausea, vomiting, diarrhea, and constipation. Exam: 10:00 Constitutional: This is a well developed, well nourished patient who is awake, alert, rn and in no acute distress. Head/Face: Normocephalic, atraumatic. ENT: no foreign body identified Neck: Trachea midline, no thyromegaly or masses palpated Respiratory: Lungs have equal breath sounds bilaterally, clear to auscultation and percussion. No rales, rhonchi or wheezes noted. No increased work of breathing, no retractions or nasal flaring. Vital Signs: 10:06 BP 190 / 71; Pulse 68; Resp 15; Pulse Ox 99% on R/A; Weight 95.25 kg; Height 5 ft. 4 ss in. (162.56 cm); Pain 0/10; 10:06 Body Mass Index 36.05 (95.25 kg, 162.56 cm) ss MDM: 09:52 Patient medically screened. rn 10:57 Data reviewed: vital signs, nurses notes, radiologic studies, CT scan, and as a result, rn I will discharge patient. Counseling: I had a detailed discussion with the patient and/or guardian regarding: the historical points, exam findings, and any diagnostic results supporting the discharge/admit diagnosis, radiology results, the need for outpatient follow up, to return to the emergency department if symptoms worsen or persist or if there are any questions or concerns that arise at home. Special discussion: I discussed with the patient/guardian in detail that at this point there is no indication for admission to the hospital. It is understood, however, that if the symptoms persist or worsen the patient needs to return immediately for re-evaluation. Based on the history and exam findings, there is no indication for further emergent testing or inpatient evaluation. I discussed with the patient/guardian the need to see the pathology secretary for further evaluation of the symptoms. ED course: No foreign body identified on ct neck, tolerating PO, no difficulty breathing, will dc home with return precautions and GI f/u if continues and doesn't resolve on its own. . 03 10:02 Order name: Soft Tissue Neck Wo Contr; Complete Time: 10:54 EDMS Administered Medications: No medications were administered Disposition: 11/30/18 10:59 Discharged to Home. Impression: Esophageal foreign body,soft plastic. - Condition is Stable. - Discharge Instructions: Swallowed Foreign Body, Adult, Foreign Body. - Medication Reconciliation Form, Thank You Letter, Antibiotic Education, Prescription Opioid Use form. - Follow up: Sahil Cheng MD; When: As needed; Reason: Recheck today's complaints, Re-evaluation by your physician. - Problem is new. - Symptoms are unchanged. Signatures: Dispatcher [employer] EDMS Perry Franco MD MD rn Smirch, Shelby, RN RN ss Jennifer Jones RN RN ph Corrections: (The following items were deleted from the chart) 10:02 10:00 Soft Tissue Neck W/Contr+CT.RAD.BRZ ordered. EDMS EDMS 11:24 10:59 11/30/2018 10:59 Discharged to Home. Impression: Esophageal foreign body,soft ph plastic. Condition is Stable. Forms are Medication Reconciliation Form, Thank You Letter, Antibiotic Education, Prescription Opioid Use. Follow up: Sahil Cheng; When: As needed; Reason: Recheck today's complaints, Re-evaluation by your physician. Problem is new. Symptoms are unchanged. rn
== END 2018-11-30 11:24 | disposition home or self-care (01) ==
LOC: ER 09:44
DX: T17.298A Other foreign object in pharynx causing other injury, initial encounter (principal)
CPT/HCPCS: 70490; 99283

== ENCOUNTER 2021-09-03 12:30 | Observation (INO) | payer OTHER ==
--- OUTSIDE RECORDS SUMMARY | 2021-09-03 12:33 | XMS REPORT | Continuity of Care Document ---
:[address] [facility] t Address [address] [place] [address] Care Team Providers Name Role Phone Amie Gresham Attending Clinician Unavailable Amie Gresham Admitting Clinician Unavailable Physician, Primary or Family Admitting Clinician Unavailabl e Payers Payer Name Policy Type Policy Number Effective Date Expiration Date S ource Problems This patient has no known problems. Allergies, Adverse Reactions, Alerts Allergy Allergy Status Severity Reaction(s) Onset Inactive Treating Comm ents Source Name Type Date Date Clinician No Known DA Active U 2019-09 [facility]ie 0-06 Clear s 00:00: [address] No Known DA Active U 2019-09 [facility] Allergie 0-06 Clear s 00:00: [address] Medications This patient has no known medications. Procedures This patient has no known procedures. Encounters Start End Encounter Admission Attending Care Care Encounter Source Date/Time Date/Time Type Type Clinicians Facility Department ID 2020-07-04 Inpatient EM NINFA Gresham [id number] [facility] 15:47:00 Inderjit [facility] 2020-07-03 Inpatient NINFA AGUIRRE [id number] [facility] 23:02:00 [facility] 2020-07-06 2020-07-06 Outpatient ASHLYN Gresham LABO [id number] [facility] 09:28:00 09:28:00 Inderjit [facility] Results Test Description Test Time Test Comments Results Result Comments Source GLUBED 2020-07-09 12:58:00 Test Item Value Reference Range Interpretation Comme nts GLUBED (test code = GLUBED) 334 mg/dL 74-106 H Performed by certified concrete [facility]~ BASIC METABOLIC [id number] 04:29:00 Test Item Value Reference Range Interpretation Comments SODIUM (test code = 139 mmol/L 136-145 N NA) POTASSIUM (test code 4.1 mmol/L 3.5-5.1 N = K) CHLORIDE (test code = 105.0 mmol/L 98-107 N CL) CARBON DIOXIDE (test 26.0 mmol/L 21-32 N code = CO2) ANION GAP (test code 12.1 10-20 N = GAP) GLUCOSE (test code = 237 mg/dL 74-106 H GLU) BLOOD UREA NITROGEN 60 mg/dL 7-18 H (test code = BUN) GLOMERULAR FILTRATION 37 mL/min >=60 Estima [place] GFR by RATE (test code = using Brissa fied MDRD GFR) formula.Chronic kidney disease is defined as [facility] er kidney damageor GFR <60 mL/min/1.73 m2 for >3 months. CREATININE (test code 1.60 mg/dL 0.55-1.02 H Note change in = CREAT) reference range due to change in reagent. BUN/CREATININE RATIO 38.0 10-20 H (test code = BUN/CREA) CALCIUM (test code = 9.1 mg/dL 8.5-10.1 N CA) BASIC METABOLIC [id number] 04:26:00 Test Item Value Reference Range Interpretation Comments SODIUM (test code = NA) 139 mmol/L 136-145 N POTASSIUM (test code = K) 4.1 mmol/L 3.5-5.1 N CHLORIDE (test code = CL) 105.0 mmol/L 98-107 N CARBON DIOXIDE (test code = CO2) mmol/L 21-32 ANION GAP (test code = GAP) 10-20 GLUCOSE (test code = GLU) mg/dL 74-106 BLOOD UREA NITROGEN (test code = mg/dL 7-18 BUN) GLOMERULAR FILTRATION RATE (test mL/min >=60 code = GFR) CREATININE (test code = CREAT) mg/dL 0.55-1.02 BUN/CREATININE RATIO (test code 10-20 = BUN/CREA) CALCIUM (test code = CA) mg/dL 8.5-10.1 CBC W/AUTO [id number] 04:20:00 Test Item Value Reference Range Interpretation Comments WHITE BLOOD CELL (test code = 4.8 K/mm3 4.5-12.5 N WBC) RED BLOOD CELL (test code = 3.57 mill/mm3 3.7-5.2 L RBC) HEMOGLOBIN (test code = HGB) 8.8 gram/dL 11.5-15.5 L HEMATOCRIT (test code = HCT) 29.1 % 36.0-46.0 L MEAN CELL VOLUME (test code = 81.5 fL 80-98 N MCV) MEAN CELL HGB (test code = MCH) 24.6 picogram 27.0-33.0 L MEAN CELL HGB CONCETRATION 30.2 gram/dL 33.0-36.0 L (test code = MCHC) RED CELL DISTRIBUTION WIDTH 13.1 % 11.6-16.2 N (test code = RDW) RED CELL DISTRIBUTION WIDTH SD 38.9 fL 37.0-51.0 N (test code = RDW-SD) PLATELET COUNT (test code = 165 K/mm3 150-450 N PLT) MEAN PLATELET VOLUME (test code 12.2 fL 6.7-11.0 H = MPV) NEUTROPHIL % (test code = NT%) 42.5 % 39.0-69.0 N IMMATURE GRANULOCYTE % (test 0.4 % 0.0-5.0 N code = IG%) LYMPHOCYTE % (test code = LY%) 41.8 % 25.0-55.0 N MONOCYTE % (test code = MO%) 13.0 % 0.0-10.0 H EOSINOPHIL % (test code = EO%) 1.7 % 0.0-5.0 N BASOPHIL % (test code = BA%) 0.6 % 0.0-1.0 N NUCLEATED RBC % (test code = 0.0 % 0-0 N NRBC%) NEUTROPHIL # (test code = NT#) 2.03 K/mm3 1.8-7.7 N IMMATURE GRANULOCYTE # (test 0.02 x10 3/uL 0-0.03 N code = IG#) LYMPHOCYTE # (test code = LY#) 2.00 K/mm3 1.0-5.0 N MONOCYTE # (test code = MO#) 0.62 K/mm3 0-0.8 N EOSINOPHIL # (test code = EO#) 0.08 K/mm3 0.0-0.5 N BASOPHIL # (test code = BA#) 0.03 K/mm3 0.0-0.2 N NUCLEATED RBC # (test code = 0.00 K/mm3 0.0-0.1 N NRBC#) MANUAL DIFF REQUIRED (test code NO = MDIFF) [id number] 21:40:00 Test Item Value Reference Range Interpretation Comments GLUBED (test code 321 mg/dL 74-106 H Performed by certified = GLUBED) concrete [facility]~ [id number] 16:53:00 Test Item Value Reference Range Interpretation Comments GLUBED (test code = 266 mg/dL 74-106 H Performe d by certified GLUBED) concrete mixer operator at [facility] [id number] 13:19:00 Test Item Value Reference Range Interpretation Comments GLUBED (test code = 262 mg/dL 74-106 H Performe d by certified GLUBED) concrete mixer operator at [facility] [id number] 06:49:00 Test Item Value Reference Range Interpretation Comments GLUBED (test code = 222 mg/dL 74-106 H Performe d by certified GLUBED) concrete mixer operator at [facility] B-TYPE NATRIURETIC [id number] 05:24:00 Test Item Value Reference Range Interpretation Comments B-TYPE NATRIURETIC PEPTIDE 36.01 pgram/mL 0-100 N (test code = BNP) BASIC METABOLIC [id number] 05:09:00 Test Item Value Reference Range Interpretation Comments SODIUM (test code = 138 mmol/L 136-145 N NA) POTASSIUM (test code 4.3 mmol/L 3.5-5.1 N = K) CHLORIDE (test code = 104.0 mmol/L 98-107 N CL) CARBON DIOXIDE (test 26.0 mmol/L 21-32 N code = CO2) ANION GAP (test code 12.3 10-20 N = GAP) GLUCOSE (test code = 231 mg/dL 74-106 H GLU) BLOOD UREA NITROGEN 56 mg/dL 7-18 H (test code = BUN) GLOMERULAR FILTRATION 37 mL/min >=60 Estima [place] GFR by RATE (test code = using Brissa fied MDRD GFR) formula.Chronic kidney disease is defined as [facility] er kidney damageor GFR <60 mL/min/1.73 m2 for >3 months. CREATININE (test code 1.60 mg/dL 0.55-1.02 H Note change in = CREAT) reference range due to change in reagent. BUN/CREATININE RATIO 33.9 10-20 H (test code = BUN/CREA) CALCIUM (test code = 8.6 mg/dL 8.5-10.1 N CA) BASIC METABOLIC [id number] 05:02:00 Test Item Value Reference Range Interpretation Comments SODIUM (test code = NA) 138 mmol/L 136-145 N POTASSIUM (test code = K) 4.3 mmol/L 3.5-5.1 N CHLORIDE (test code = CL) 104.0 mmol/L 98-107 N CARBON DIOXIDE (test code = CO2) mmol/L 21-32 ANION GAP (test code = GAP) 10-20 GLUCOSE (test code = GLU) mg/dL 74-106 BLOOD UREA NITROGEN (test code = mg/dL 7-18 BUN) GLOMERULAR FILTRATION RATE (test mL/min >=60 code = GFR) CREATININE (test code = CREAT) mg/dL 0.55-1.02 BUN/CREATININE RATIO (test code 10-20 = BUN/CREA) CALCIUM (test code = CA) mg/dL 8.5-10.1 CBC W/AUTO [id number] 04:43:00 Test Item Value Reference Range Interpretation Comments WHITE BLOOD CELL (test code = 4.4 K/mm3 4.5-12.5 L WBC) RED BLOOD CELL (test code = 3.56 mill/mm3 3.7-5.2 L RBC) HEMOGLOBIN (test code = HGB) 8.9 gram/dL 11.5-15.5 L HEMATOCRIT (test code = HCT) 29.6 % 36.0-46.0 L MEAN CELL VOLUME (test code = 83.1 fL 80-98 N MCV) MEAN CELL HGB (test code = MCH) 25.0 picogram 27.0-33.0 L MEAN CELL HGB CONCETRATION 30.1 gram/dL 33.0-36.0 L (test code = MCHC) RED CELL DISTRIBUTION WIDTH 13.1 % 11.6-16.2 N (test code = RDW) RED CELL DISTRIBUTION WIDTH SD 39.8 fL 37.0-51.0 N (test code = RDW-SD) PLATELET COUNT (test code = 167 K/mm3 150-450 N PLT) MEAN PLATELET VOLUME (test code 12.4 fL 6.7-11.0 H = MPV) NEUTROPHIL % (test code = NT%) 40.2 % 39.0-69.0 N IMMATURE GRANULOCYTE % (test 0.5 % 0.0-5.0 N code = IG%) LYMPHOCYTE % (test code = LY%) 40.7 % 25.0-55.0 N MONOCYTE % (test code = MO%) 15.2 % 0.0-10.0 H EOSINOPHIL % (test code = EO%) 2.5 % 0.0-5.0 N BASOPHIL % (test code = BA%) 0.9 % 0.0-1.0 N NUCLEATED RBC % (test code = 0.0 % 0-0 N NRBC%) NEUTROPHIL # (test code = NT#) 1.78 K/mm3 1.8-7.7 L IMMATURE GRANULOCYTE # (test 0.02 x10 3/uL 0-0.03 N code = IG#) LYMPHOCYTE # (test code = LY#) 1.80 K/mm3 1.0-5.0 N MONOCYTE # (test code = MO#) 0.67 K/mm3 0-0.8 N EOSINOPHIL # (test code = EO#) 0.11 K/mm3 0.0-0.5 N BASOPHIL # (test code = BA#) 0.04 K/mm3 0.0-0.2 N NUCLEATED RBC # (test code = 0.00 K/mm3 0.0-0.1 N NRBC#) [id number] 21:36:00 Test Item Value Reference Range Interpretation Comments GLUBED (test code 261 mg/dL 74-106 H Performed by certified = GLUBED) concrete mixer operator [facility]~ [id number] 16:06:00 Test Item Value Reference Range Interpretation Comments GLUBED (test code = 273 mg/dL 74-106 H Performe d by certified GLUBED) concrete mixer operator at [facility] [id number] 12:30:00 Test Item Value Reference Range Interpretation Comments GLUBED (test code = 248 mg/dL 74-106 H Performe d by certified GLUBED) concrete mixer operator at [facility] [id number] 05:44:00 Test Item Value Reference Range Interpretation Comments GLUBED (test code = 194 mg/dL 74-106 H Performe d by certified GLUBED) concrete mixer operator at [facility] [id number] 20:33:00 Test Item Value Reference Range Interpretation Comments GLUBED (test code = 154 mg/dL 74-106 H Performe d by certified GLUBED) concrete mixer operator at [facility] [id number] 18:59:00 Test Item Value Reference Range Interpretation Comments GLUBED (test code = 290 mg/dL 74-106 H Performe d by certified GLUBED) concrete mixer operator at [facility] - CT CHEST W/O [id number] 14:23:00 Name: CORINNE RASHID [facility] : 1935 Age/S: 85 / F [address] [facility] Unit #: [id number] Loc: [place] [address] Phys: Xavier Solomon MD Acct: [id number] Dis Date: Status: ADM IN PHONE #: [phone] Exam Date: 07/06/2020 1415 FAX #: [phone] Reason: sob, ckd EXAMS: CPTCODE: [id number] CT CHEST W/O CONTRAST 69961 HISTORY: Shortness of breath and COPD. COMPARISON: Chest x-ray from July 03, 2020.Location: [facility]. CT chest without contrast: Automated exposure control. Suboptimal inspiration. Dependent changes bilaterally. No acute infiltrates, effusion or congestion. No bronchiectasis, honeycombing or fibrosis or endobronchial lesions. No discrete parenchymal mass or nodules are noted. Normal caliber unopacified aorta and pulmonary arteries. Unremarkable thyroid glands. Esophagus is dilated. The wall is not thickened. No pathologic adenopathy. Moderate cardiomegaly without pericardial effusion. Heavy atherosclerotic calcifications of the [place] coronary arteries however patient is post median sternotomy. Visualized upper abdomen appears unremarkable. The subcutaneous tissues and the musculature are normal in appearance. No lytic or blastic lesions are noted within the bony skeleton. IMPRESSION: Bibasal dependent changes and subsegmental atelectasiswithout acute infiltrates, effusion or congestion. No bronchiectasis, honeycombing or fibrosis. No discrete mass or nodules. No pathologic adenopathy. at 1423 Reported and signed by: Jose Benson M.D. CC: Inderjit Gresham MD; Xavier Solomon MD Technologist:Jess Kinney RT(R),CT CTDI: DLP: Trnscb Date/Time: 07/06/2020 (4793) t.SDR.[email or web address] Orig Print D/T: S: 07/06/2020 (6882) PAGE 1 Signed ReportGLUBED 2020-07-06 12:04:00 Test Item Value Reference Range Interpretation Comments GLUBED (test code = 251 mg/dL 74-106 H Performe d by certified GLUBED) concrete mixer operator at [facility] [id number] 05:45:00 Test Item Value Reference Range Interpretation Comments GLUBED (test code = 90 mg/dL 74-106 N Performe d by certified GLUBED) concrete mixer operator at [facility] [id number] 23:06:00 Test Item Value Reference Range Interpretation Comments TROPONIN-I (test code = TROPI) <0.015 ng/mL 0-0.045 N [id number] 20:34:00 Test Item Value Reference Range Interpretation Comments GLUBED (test code = 186 mg/dL 74-106 H Performe d by certified GLUBED) concrete mixer operator at [facility] URINALYSIS [id number] 18:53:00 Test Item Value Reference Range Interpretation Comments UA COLOR (test code = COLU) Light-Yellow YELLOW UA APPEARANCE (test code = CLEAR CLEAR APPU) UA GLUCOSE DIPSTICK (test NEGATIVE mg/dL NEGATIVE code = DGLUU) UA BILIRUBIN DIPSTICK (test NEGATIVE mg/dL NEGATIVE code = BILU) UA KETONE DIPSTICK (test code NEGATIVE mg/dL NEGATIVE = KETU) UA SPECIFIC GRAVITY (test 1.008 1.001-1.035 code = SGU) UA BLOOD DIPSTICK (test code Negative mg/dL NEGATIVE = BAY) UA PH DIPSTICK (test code = 5.0 5.0-8.0 TAWANDA) UA PROTEIN DIPSTICK (test NEGATIVE mg/dL NEGATIVE code = PROU) UA UROBILINIOGEN DIPSTICK Normal mg/dL NEGATIVE (test code = URO) UA NITRITE DIPSTICK (test NEGATIVE NEGATIVE code = ESAU) UA LEUKOCYTE ESTERASE W NEGATIVE Pawan/uL NEGATIVE REFLEX (test code = LEUUR) UA WBC (test code = WBCU) 0-5 per HPF 0-5 UA RBC (test code = RBCU) 0-2 #/HPF 0-5 UA EPITHELIAL CELLS (test FEW per HPF FEW code = EPIU) UA BACTERIA (test code = MANY #/HPF NONE A BACU) UA HYALINE CAST (test code = 6-10 #/LPF 0-5 A HYALU) UA MUCUS (test code = MUCU) FEW #/LPF FEW Urine Source? Clean CatchSAMPLE TO BE COLLECTED BY NURSEUR PROTEIN/CREATININE [id number] 18:53:00 Test Item Value Reference Range Interpretation Comments UR PROTEIN RANDOM 12.6 mg/dL 0.0-11.9 H Protein le vels may be (test code = PROTU) falsely elevated in patients withel evated level of aminog lycoside antibiotics in CSF and inhighly concen trated urine specimens . If false elevation issuspected, co ntact lab for alterna [place] testing techniq ue. UR CREATININE RANDOM 69.0 mg/dL 30-125 N (test code = CREATU) PROTEIN/CREATININE 0.18 RATIO 0.0-0.20 N RATIO (test code = P/CRATIO) Urine Source? Clean CatchSAMPLE TO BE COLLECTED BY [id number] 18:45:00 Test Item Value Reference Range Interpretation Comments GLUBED (test code = 51 mg/dL 74-106 L Performe d by certified GLUBED) concrete mixer operator at [facility] URINALYSIS [id number] 17:06:00 Test Item Value Reference Range Interpretation Comments UA COLOR (test code = COLU) Light-Yellow YELLOW UA APPEARANCE (test code = CLEAR CLEAR APPU) UA GLUCOSE DIPSTICK (test NEGATIVE mg/dL NEGATIVE code = DGLUU) UA BILIRUBIN DIPSTICK (test NEGATIVE mg/dL NEGATIVE code = BILU) UA KETONE DIPSTICK (test code NEGATIVE mg/dL NEGATIVE = KETU) UA SPECIFIC GRAVITY (test 1.008 1.001-1.035 code = SGU) UA BLOOD DIPSTICK (test code Negative mg/dL NEGATIVE = BAY) UA PH DIPSTICK (test code = 5.0 5.0-8.0 TAWANDA) UA PROTEIN DIPSTICK (test NEGATIVE mg/dL NEGATIVE code = PROU) UA UROBILINIOGEN DIPSTICK Normal mg/dL NEGATIVE (test code = URO) UA NITRITE DIPSTICK (test NEGATIVE NEGATIVE code = ESAU) UA LEUKOCYTE ESTERASE W NEGATIVE Pawan/uL NEGATIVE REFLEX (test code = LEUUR) UA WBC (test code = WBCU) 0-5 per HPF 0-5 UA RBC (test code = RBCU) 0-2 #/HPF 0-5 UA EPITHELIAL CELLS (test FEW per HPF FEW code = EPIU) UA BACTERIA (test code = MANY #/HPF NONE A BACU) UA HYALINE CAST (test code = 6-10 #/LPF 0-5 A HYALU) UA MUCUS (test code = MUCU) FEW #/LPF FEW Urine Source? Clean CatchSAMPLE TO BE COLLECTED BY NURSEUR PROTEIN/CREATININE [id number] 17:06:00 Test Item Value Reference Range Interpretation Comments UR PROTEIN RANDOM (test code = PROTU) mg/dL 0.0-11.9 UR CREATININE RANDOM (test code = mg/dL 30-125 CREATU) PROTEIN/CREATININE RATIO (test code = RATIO 0.0-0.20 P/CRATIO) Urine Source? Clean CatchSAMPLE TO BE COLLECTED BY [id number] 15:46:00 Test Item Value Reference Range Interpretation Comments GLUBED (test code = 85 mg/dL 74-106 N Performe d by certified GLUBED) concrete mixer operator at [facility] COMPREHENSIVE METABOLIC [id number] 07:54:00 Test Item Value Reference Range Interpretation Comments SODIUM (test code = 137 mmol/L 136-145 N NA) POTASSIUM (test code = 4.1 mmol/L 3.5-5.1 N K) CHLORIDE (test code = 105.0 mmol/L 98-107 N CL) CARBON DIOXIDE (test 26.0 mmol/L 21-32 N code = CO2) ANION GAP (test code = 10.1 10-20 N GAP) GLUCOSE (test code = 205 mg/dL 74-106 H GLU) BLOOD UREA NITROGEN 55 mg/dL 7-18 H (test code = BUN) GLOMERULAR FILTRATION 26 mL/min >=60 Estima [place] GFR by RATE (test code = GFR) using Modified MDRD formula.Chronic kidney disease is defined as eith er kidney damageor GFR <60 mL/min/1.73 m2 for >3 months. CREATININE (test code 2.20 mg/dL 0.55-1.02 H Note change in = CREAT) reference range due to change in reagent. BUN/CREATININE RATIO 25.0 10-20 H (test code = BUN/CREA) TOTAL PROTEIN (test 6.6 gram/dL 6.4-8.2 N code = PROT) ALBUMIN (test code = 2.9 g/dL 3.4-5.0 L ALB) GLOBULIN (test code = 3.7 gram/dL 2.7-4.2 N GLOB) ALBUMIN/GLOBULIN RATIO 0.8 0.75-1.50 N (test code = A/G) CALCIUM (test code = 7.8 mg/dL 8.5-10.1 L CA) BILIRUBIN TOTAL (test 0.20 mg/dL 0.0-1.0 N code = BILT) SGOT/AST (test code = 17 IUnit/L 15-37 N AST) SGPT/ALT (test code = 19 IUnit/L 12-78 N ALT) ALKALINE PHOSPHATASE 53 IUnit/L 45-117 N Note change in TOTAL (test code = reference range due ALKP) to change in reagent. COMPREHENSIVE METABOLIC [id number] 07:51:00 Test Item Value Reference Range Interpretation Comments SODIUM (test code = NA) 137 mmol/L 136-145 N POTASSIUM (test code = K) 4.1 mmol/L 3.5-5.1 N CHLORIDE (test code = CL) 105.0 mmol/L 98-107 N CARBON DIOXIDE (test code = CO2) mmol/L 21-32 ANION GAP (test code = GAP) 10-20 GLUCOSE (test code = GLU) mg/dL 74-106 BLOOD UREA NITROGEN (test code = mg/dL 7-18 BUN) GLOMERULAR FILTRATION RATE (test mL/min >=60 code = GFR) CREATININE (test code = CREAT) mg/dL 0.55-1.02 BUN/CREATININE RATIO (test code 10-20 = BUN/CREA) TOTAL PROTEIN (test code = PROT) gram/dL 6.4-8.2 ALBUMIN (test code = ALB) g/dL 3.4-5.0 GLOBULIN (test code = GLOB) gram/dL 2.7-4.2 ALBUMIN/GLOBULIN RATIO (test 0.75-1.50 code = A/G) CALCIUM (test code = CA) mg/dL 8.5-10.1 BILIRUBIN TOTAL (test code = mg/dL 0.0-1.0 BILT) SGOT/AST (test code = AST) IUnit/L 15-37 SGPT/ALT (test code = ALT) IUnit/L 12-78 ALKALINE PHOSPHATASE TOTAL (test IUnit/L 45-117 code = ALKP) [id number] 05:52:00 Test Item Value Reference Range Interpretation Comments GLUBED (test code = 207 mg/dL 74-106 H Performe d by certified GLUBED) concrete mixer operator at [facility] [id number] 05:52:00 Test Item Value Reference Range Interpretation Comments GLUBED (test code = 45 mg/dL 74-106 LL Performe d by certified GLUBED) concrete mixer operator [facility]~ [id number] 21:22:00 Test Item Value Reference Range Interpretation Comments GLUBED (test code = 127 mg/dL 74-106 H Performe d by certified GLUBED) concrete mixer operator at [facility] [id number] 20:34:00 Test Item Value Reference Range Interpretation Comments GLUBED (test code = 201 mg/dL 74-106 H Performe d by certified GLUBED) concrete mixer operator at [facility] - PULM VENT PERF [id number] 13:27:00 FAX: Inderjit Gresham MD [phone] [place]: B St: ADM FAX: Negrito Gutierrez NP [phone] Name: CORINNE RASHID [facility] : 1935 Age/S: 85/F [address] Unit #: [id number] Loc: [address] [place], [place] [address] Phys: Negrito Gutierrez [employer] ENGINEER Acct: [id number] Dis Date: Status: ADM IN PHONE #: [phone] Exam Date: 07/04/2020 1320 FAX #: [phone] Reason: elevated d dimer EXAMS: CPT CODE: [id number] PULM VENT PERF IMAG 80700 HISTORY: Elevated d-dimer. COMPARISON: Chest x-ray from previous day. Location: [facility]. VQ scan: 9.9 mCi of xenon-133 gas and 5.5 mCi of technetium 99m MAA. Ventilation study: Good wash in and good washout. No retention. Perfusion study: No segmental or subsegmental defects. IMPRESSION: FINDINGS suggest low probability for pulmonary embolism. [id number] Reported and signed by: Jose Benson M.D. CC: Inderjit Catalan MD; Negrito Gutierrez NP Technologist: Melany Choudhary RT(N) Trnscrd Date/Time/By: 07/04/2020 (9987) : By: [email or web address] Orig Print D/T: S: 07/04/2020 (1511) PAGE 1 Signed [id number] 12:44:00 Test Item Value Reference Range Interpretation Comments GLUBED (test code = 266 mg/dL 74-106 H Performe d by certified GLUBED) concrete mixer operator at [facility] [id number] 12:41:00 Test Item Value Reference Range Interpretation Comments TROPONIN-I (test code = TROPI) <0.015 ng/mL 0-0.045 N COMMENTS TO [employer]: COLLECT 3 HOURS AFTER PREVIOUS [id number] 08:43:00 Test Item Value Reference Range Interpretation Comments GLUBED (test code = 142 mg/dL 74-106 H Performe d by certified GLUBED) concrete mixer operator at [facility] - US RETRO [id number] 07:39:00 Name: [facility] 1935 Age/S: 85 / F [address] Unit #: [id number] Loc: [place] [address] Phys: Lucrecia Vuong MD Acct: [id number] Dis Date: Status: ADM IN PHONE #: [phone] Exam Date: 07/04/2020327 FAX #: [phone] Reason: acute on chronic renal disease stage 3 EXAMS: CPTCODE: [id number] [facility] [address] EXAM: Ultrasound retroperitoneum, limited; INFORMATION: Acute on chronic renal disease; FINDINGS: The kidneys are relatively small with mild cortical thinning. The right kidney measures 7 x 3.5 x 3.1 cm, with a cortical thickness of 8 mm. The left kidney measures 7.7 x 3.9 x 3.2 cm, with a parenchymal thickness of 1 cm. No hydronephrosis or stones. The urinary bladder is almost empty. It is otherwise unremarkable. IMPRESSION: 1. Mild renal atrophy. 2. No evidence of hydronephrosis or stones. Location code: [facility] at 0739 Reported and signed by: Prosper Watkins M.D. CC: Lucrecia Vuong MD Technologist: CHERELLE MARTÍNEZ RT(R),[facility] Trngab Date/Time: 07/04/2020 (0739) [email or web address] Orig Print D/T: S: 07/04/2020 (0742) Probe: PAGE 1 Signed Report [id number] 05:48:00 Test Item Value Reference Range Interpretation Comments GLYCOSYLATED HEMOGLOBIN 6.5 % HbA1 SUGG ESTED DIAGNOSIS: (HA1C) (test code = HbA1C GLYHGB) (%) ----- ----- Diab etic >6.4Prediabetes 5.7 - 6.4Normal <5.7 ESTIMATED AVERAGE 140 MG/DL GLUCOSE (test code = EAG) BASIC METABOLIC [id number] 05:42:00 Test Item Value Reference Range Interpretation Comments SODIUM (test code = 137 mmol/L 136-145 N NA) POTASSIUM (test code 5.7 mmol/L 3.5-5.1 H NOT HEM OLYZED = K) CHLORIDE (test code = 108.0 mmol/L 98-107 H CL) CARBON DIOXIDE (test 23.0 mmol/L 21-32 N code = CO2) ANION GAP (test code 11.7 10-20 N = GAP) GLUCOSE (test code = 175 mg/dL 74-106 H GLU) BLOOD UREA NITROGEN 64 mg/dL 7-18 H (test code = BUN) GLOMERULAR FILTRATION 19 mL/min >=60 Estima [place] GFR by RATE (test code = using Brissa fied MDRD GFR) formula.Chronic kidney disease is defined as eith er kidney damageor GFR <60 mL/min/1.73 m2 for >3 months. CREATININE (test code 2.90 mg/dL 0.55-1.02 H Note change in = CREAT) reference range due to change in reagent. BUN/CREATININE RATIO 22.1 10-20 H (test code = BUN/CREA) CALCIUM (test code = 9.3 mg/dL 8.5-10.1 N CA) LIPID PROFILE (CORONARY RISK)2020-07-04 05:42:00 Test Item Value Reference Range Interpretation Comments TRIGLYCERIDES (test 69 mg/dL 20-150 N code = TRIG) CHOLESTEROL (test code 142 mg/dL 0-200 N = CHOL) CHOLESTEROL/HDL RATIO 2.0 RATIO 0-4.9 N RISK A SSOCIATED WITH (test code = CHOLHDL) CHOL/H DL RATIOS: Risk M bradford Female1/[address] A[address] RAGE 3.43 3.27AVERAGE 4.97 4.4 42X AVERAGE 9[address] RAGE 23.39 11.04 REFERENCE VALUE IS RELATED TO RISK LEVELS ASRECOMMENDED B Y THE [facility]. HEART, JOHN G, AND BLOOD INST. HDL CHOLESTEROL (test 61 mg/dL 40-60 H code = HDL) LIPOPROTEIN LDL (test 76 mg/dL 100-129 L ====== code = LDL) ======= Referen ce Interval: mg/dL mmol/L--------- ------- ------- ------O ptimal <100 <2.6Near/above optimal 100-12 9 2.6-3.3Borderl ine High 130-159 3.4-4.1High 160 -189 4.1-4.9Very High >=190 >=4.9========= This LDL result is a direct measurement.=== ====== TSH REFLEX TO [id number] 05:42:00 Test Item Value Reference Range Interpretation Comments TSH REFLEX TO FT4 (test code = 1.6 0.4-5.5 N TSHREFLEX) [id number] 05:42:00 Test Item Value Reference Range Interpretation Comments TROPONIN-I (test code = TROPI) <0.015 ng/mL 0-0.045 N BASIC METABOLIC [id number] 05:28:00 Test Item Value Reference Range Interpretation Comments SODIUM (test code = NA) 137 mmol/L 136-145 N POTASSIUM (test code = K) 5.7 mmol/L 3.5-5.1 H NO T HEMOLYZED CHLORIDE (test code = CL) 108.0 mmol/L 98-107 H CARBON DIOXIDE (test code = mmol/L 21-32 CO2) ANION GAP (test code = GAP) 10-20 GLUCOSE (test code = GLU) mg/dL 74-106 BLOOD UREA NITROGEN (test mg/dL 7-18 code = BUN) GLOMERULAR FILTRATION RATE mL/min >=60 (test code = GFR) CREATININE (test code = mg/dL 0.55-1.02 CREAT) BUN/CREATININE RATIO (test 10-20 code = BUN/CREA) CALCIUM (test code = CA) mg/dL 8.5-10.1 LIPID PROFILE (CORONARY RISK)2020-07-04 05:28:00 Test Item Value Reference Range Interpretation Comments TRIGLYCERIDES (test code = TRIG) mg/dL 20-150 CHOLESTEROL (test code = CHOL) mg/dL 0-200 CHOLESTEROL/HDL RATIO (test code = RATIO 0-4.9 CHOLHDL) HDL CHOLESTEROL (test code = HDL) mg/dL 40-60 LIPOPROTEIN LDL (test code = LDL) mg/dL 100-129 TSH REFLEX TO [id number] 05:28:00 Test Item Value Reference Range Interpretation Comments TSH REFLEX TO FT4 (test code = 0.4-5.5 TSHREFLEX) [id number] 05:28:00 Test Item Value Reference Range Interpretation Comments TROPONIN-I (test code = TROPI) ng/mL 0-0.045 CBC W/AUTO [id number] 05:22:00 Test Item Value Reference Range Interpretation Comments WHITE BLOOD CELL (test code = 6.4 K/mm3 4.5-12.5 N WBC) RED BLOOD CELL (test code = 3.53 mill/mm3 3.7-5.2 L RBC) HEMOGLOBIN (test code = HGB) 8.9 gram/dL 11.5-15.5 L HEMATOCRIT (test code = HCT) 29.5 % 36.0-46.0 L MEAN CELL VOLUME (test code = 83.6 fL 80-98 N MCV) MEAN CELL HGB (test code = MCH) 25.2 picogram 27.0-33.0 L MEAN CELL HGB CONCETRATION 30.2 gram/dL 33.0-36.0 L (test code = MCHC) RED CELL DISTRIBUTION WIDTH 13.8 % 11.6-16.2 N (test code = RDW) RED CELL DISTRIBUTION WIDTH SD 41.9 fL 37.0-51.0 N (test code = RDW-SD) PLATELET COUNT (test code = 164 K/mm3 150-450 N PLT) MEAN PLATELET VOLUME (test code 12.7 fL 6.7-11.0 H = MPV) NEUTROPHIL % (test code = NT%) 54.2 % 39.0-69.0 N IMMATURE GRANULOCYTE % (test 0.5 % 0.0-5.0 N code = IG%) LYMPHOCYTE % (test code = LY%) 34.5 % 25.0-55.0 N MONOCYTE % (test code = MO%) 10.0 % 0.0-10.0 N EOSINOPHIL % (test code = EO%) 0.3 % 0.0-5.0 N BASOPHIL % (test code = BA%) 0.5 % 0.0-1.0 N NUCLEATED RBC % (test code = 0.0 % 0-0 N NRBC%) NEUTROPHIL # (test code = NT#) 3.47 K/mm3 1.8-7.7 N IMMATURE GRANULOCYTE # (test 0.03 x10 3/uL 0-0.03 N code = IG#) LYMPHOCYTE # (test code = LY#) 2.21 K/mm3 1.0-5.0 N MONOCYTE # (test code = MO#) 0.64 K/mm3 0-0.8 N EOSINOPHIL # (test code = EO#) 0.02 K/mm3 0.0-0.5 N BASOPHIL # (test code = BA#) 0.03 K/mm3 0.0-0.2 N NUCLEATED RBC # (test code = 0.00 K/mm3 0.0-0.1 N NRBC#) B-TYPE NATRIURETIC [id number] 03:01:00 Test Item Value Reference Range Interpretation Comments B-TYPE NATRIURETIC PEPTIDE 81.34 pgram/mL 0-100 N (test code = BNP) CBC W/AUTO [id number] 01:33:00 Test Item Value Reference Range Interpretation Comments WHITE BLOOD CELL (test code = 6.3 K/mm3 4.5-12.5 N WBC) RED BLOOD CELL (test code = 3.69 mill/mm3 3.7-5.2 L RBC) HEMOGLOBIN (test code = HGB) 9.4 gram/dL 11.5-15.5 L HEMATOCRIT (test code = HCT) 30.6 % 36.0-46.0 L MEAN CELL VOLUME (test code = 82.9 fL 80-98 N MCV) MEAN CELL HGB (test code = MCH) 25.5 picogram 27.0-33.0 L MEAN CELL HGB CONCETRATION 30.7 gram/dL 33.0-36.0 L (test code = MCHC) RED CELL DISTRIBUTION WIDTH 13.7 % 11.6-16.2 N (test code = RDW) RED CELL DISTRIBUTION WIDTH SD 41.1 fL 37.0-51.0 N (test code = RDW-SD) PLATELET COUNT (test code = 172 K/mm3 150-450 N PLT) MEAN PLATELET VOLUME (test code 13.0 fL 6.7-11.0 H = MPV) NEUTROPHIL % (test code = NT%) 58.5 % 39.0-69.0 N IMMATURE GRANULOCYTE % (test 0.5 % 0.0-5.0 N code = IG%) LYMPHOCYTE % (test code = LY%) 30.1 % 25.0-55.0 N MONOCYTE % (test code = MO%) 9.8 % 0.0-10.0 N EOSINOPHIL % (test code = EO%) 0.6 % 0.0-5.0 N BASOPHIL % (test code = BA%) 0.5 % 0.0-1.0 N NUCLEATED RBC % (test code = 0.0 % 0-0 N NRBC%) NEUTROPHIL # (test code = NT#) 3.69 K/mm3 1.8-7.7 N IMMATURE GRANULOCYTE # (test 0.03 x10 3/uL 0-0.03 N code = IG#) LYMPHOCYTE # (test code = LY#) 1.90 K/mm3 1.0-5.0 N MONOCYTE # (test code = MO#) 0.62 K/mm3 0-0.8 N EOSINOPHIL # (test code = EO#) 0.04 K/mm3 0.0-0.5 N BASOPHIL # (test code = BA#) 0.03 K/mm3 0.0-0.2 N NUCLEATED RBC # (test code = 0.00 K/mm3 0.0-0.1 N NRBC#) BASIC METABOLIC [id number] 01:14:00 Test Item Value Reference Range Interpretation Comments SODIUM (test code = 136 mmol/L 136-145 N NA) POTASSIUM (test code 5.8 mmol/L 3.5-5.1 H = K) CHLORIDE (test code = 108.0 mmol/L 98-107 H CL) CARBON DIOXIDE (test 18.0 mmol/L 21-32 L code = CO2) ANION GAP (test code 15.8 10-20 N = GAP) GLUCOSE (test code = 178 mg/dL 74-106 H GLU) BLOOD UREA NITROGEN 63 mg/dL 7-18 H (test code = BUN) GLOMERULAR FILTRATION 18 mL/min >=60 Estima [place] GFR by RATE (test code = using Brissa fied MDRD GFR) formula.Chronic kidney disease is defined as eith er kidney damageor GFR <60 mL/min/1.73 m2 for >3 months. CREATININE (test code 3.00 mg/dL 0.55-1.02 H Note change in = CREAT) reference range due to change in reagent. BUN/CREATININE RATIO 21.2 10-20 H (test code = BUN/CREA) CALCIUM (test code = 9.0 mg/dL 8.5-10.1 N CA) [id number] 01:14:00 Test Item Value Reference Range Interpretation Comments TROPONIN-I (test code = TROPI) <0.015 ng/mL 0-0.045 N Coronavirus 2019 nCoV [id number] 00:33:00 Test Item Value Reference Range Interpretation Comments Coronavirus 2019 nCoV Bedside (test Negative code = [id number]) - XR CHEST 1 [id number] 23:55:00 FAX: Sandie Rowe [phone] [place]: St: PRE Name: CORINNE RASHID [facility] : 1935 Age/S: 85/F [address] [facility] Unit#: [id number] Loc: [place] [address] Phys: Sandie Lezama MD Acct: [id number] Dis Date: Status: PRE ER PHONE #: [phone] Exam Date: 07/03/2020 2343 FAX #: [phone] Reason: sob EXAMS: CPT CODE: [id number] XR CHEST 1 V 35568 - XR CHEST 1 V, 07/03/2020 11:26 PM Reason For Examination: sob Comparison: None available Location: [address] LUNGS: No definite pulmonary edema or consolidation, although exam findings limited by low lung volumes PLEURA: No pleural effusions CARDIOMEDIASTINAL SILHOUETTE Mild enlargement of the cardiac silhouette IMPRESSION: Limited exam Mild enlargement of the cardiac silhouette at 6436 Reported and signed by: Arlet Larsen M.D. CC: Sandie Lezama MD Technologist: Diann Cisneros Trnscrd Date/Time/By: 07/03/2020 (4095) : By: [email or web address] Orig Print D/T: S: 07/03/2020 (1824) PAGE 1 Signed Report
[2021-09-03] MEDS ORDERED: FAMOTIDINE 20 MG/2 ML VIAL IV ONE (12:48)
[2021-09-03] MEDS ORDERED: ONDANSETRON 4 MG/2 ML VIAL ONE (12:48)
--- NOTE | 2021-09-03 12:57 | RAD REPORT ---
EXAM DESCRIPTION: CT - Ct Stroke Brain Wo Cont - 09/03/2021 12:46 pm CLINICAL HISTORY: WEAKNESS COMPARISON: No comparisons TECHNIQUE: All CT scans are performed using dose optimization technique as appropriate and may inclu de automated exposure control or mA/KV adjustment according to patient size. FINDINGS: No intracranial hemorrhage, hydrocephalus or extra-axial fluid collection.No areas of brai n edema or evidence of midline shift. Mild chronic small vessel ischemic changes. Intracranial athero sclerosis. The paranasal sinuses and mastoids are clear. The calvarium is intact. IMPRESSION: No acute intracranial abnormality.
[2021-09-03] MEDS ORDERED: PROMETHAZINE INJ 25 MG/ML AMP ONE (13:11)
[2021-09-03] MEDS ORDERED: NA CHLORIDE 0.9% 1,000 ML ONE (13:11)
[2021-09-03 13:12] LABS: Absolute Lymphocytes (CBC) 0.9 K/uL (0.7-4.9); Hematocrit 33.6 % (36.0-45.0); Lymphocytes % 15.6 % (15.3-44.8); MPV 9.7 fL (7.6-11.3); RBC Red Blood Cell Count 4.47 M/uL (3.86-4.86)
[2021-09-03 13:15] LABS: Protime INR 1.03
--- NOTE | 2021-09-03 13:21 | RAD REPORT ---
EXAM DESCRIPTION: Maximino Single View09/03/2021 1:14 pm CLINICAL HISTORY: Syncope COMPARISON: 2013 FINDINGS: Mild bibasilar lung opacities may represent atelectasis or infiltrate. Heart is mildly enlarged. Postsurgical changes involve the chest
[2021-09-03 13:35] LABS: Blood Morphology Comment NOTED (NOT SEEN); Platelet Estimate ADEQ; White Blood Cell Scan OK (OK)
[2021-09-03 13:36] LABS: Anisocytosis 2+
[2021-09-03 13:52] LABS: ALT/SGPT 15 U/L (12-78); Alkaline Phosphatase 73 U/L (45-117); BUN Blood Urea Nitrogen 46 mg/dL (7-18); Bicarbonate 27 mmol/L (21-32); Bilirubin Direct < 0.1 mg/dL (0-0.2); Bilirubin Total 0.3 mg/dL (0.2-1.0); Glucose Level 124 mg/dL (74-106); Lipase 22 U/L (73-393); NT PRO-BNP 264 pg/mL (<450); Protein, Total 7.5 g/dL (6.4-8.2); Sodium Level 143 mmol/L (136-145); Troponin (Emerg Dept Use Only) < 0.02 ng/mL (0.0-0.045)
[2021-09-03 13:54] LABS: AST/SGOT 17 U/L (15-37); Magnesium 2.4 mg/dL (1.8-2.4); Potassium 4.4 mmol/L (3.5-5.1)
--- NOTE | 2021-09-03 14:22 | ER ---
Nurse's Notes [facility] Name: Irene Bolaños Age: 86 yrs Sex: Female : 1935 Arrival Date: 09/03/2021 Time: 12:38 Bed 3 Private MD: Diagnosis: Altered mental status, unspecified;Anemia, unspecified;Type 2 diabetes mellitus with hyperglycemia;Unspecified kidney failure-CHRONIC;GI Bleed/ Gastrointestinal hemorrhage, unspecified Presentation: 09/03 12:39 Chief complaint: EMS states: ACTING ALTERED AFTER STATING STOMACH HURTS. Coronavirus bp screen: At this time, the client does not indicate any symptoms associated with coronavirus-19. Ebola Screen: No symptoms or risks identified at this time. Initial Sepsis Screen: Does the patient meet any 2 criteria? No. Patient's initial sepsis screen is negative. Does the patient have a suspected source of infection? No. Patient's initial sepsis screen is negative. Risk Assessment: Do you want to hurt yourself or someone else? Patient reports no desire to harm self or others. Onset of symptoms was September 03, 2021 at 12:25. 12:39 Method Of Arrival: EMS: [facility] bp 12:39 Acuity: MICHELLE 1 bp Triage Assessment: 12:41 General: Appears distressed, uncomfortable, obese, Behavior is cooperative, appropriate bp for age, anxious, drowsy. Pain: Complains of pain in abdomen. EENT: No deficits noted. Neuro: Level of Consciousness is awake, lethargic, Oriented to person, place, time. Cardiovascular: Rhythm is sinus bradycardia. Respiratory: No deficits noted. GI: Reports lower abdominal pain, upper abdominal pain, bloating, nausea. : No signs and/or symptoms were reported regarding the genitourinary system. Derm: No deficits noted. Musculoskeletal: Reports weakness in GENERALIZED. 12:44 General: Appears distressed, ill, well nourished, Behavior is appropriate for age, jh6 combative, vomiting. Pain: Complains of pain in abdomen. Neuro: No deficits noted. 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 - Social history:: Smoking status: Patient denies any tobacco usage or history of. Screenin:44 Abuse screen: Denies threats or abuse. Nutritional screening: No deficits noted. [facility] Tuberculosis screening: No symptoms or risk factors identified. Fall Risk Secondary diagnosis (15 points) impaired mobility. Assessment: 12:35 General: SEE TRIAGE NOTE. bp 12:38 Reassessment: PT TO CT WITH STAFF. bp 12:56 Reassessment: Pt alert and states that she is having upper abd pain an nausea. lab at [facility] bedside attempting to get lab work Patient states symptoms have improved. 14:28 Reassessment: No changes from previously documented assessment. Patient and/or family [facility] updated on plan of care and expected duration. Pain level reassessed. Patient is alert, oriented x 3, equal unlabored respirations, skin warm/dry/pink. General: Appears comfortable, Behavior is calm, listless. 16:00 Reassessment: No changes from previously documented assessment. Patient and/or family bp updated on plan of care and expected duration. Pain level reassessed. ADMIT IN PROCESS. TOILETING DONE BY FAMILY. 17:00 Reassessment: No changes from previously documented assessment. Patient and/or family bp updated on plan of care and expected duration. Pain level reassessed. PHLEBOTOMY AT B/S. 18:07 Reassessment: No changes from previously documented assessment. Patient and/or family bp updated on plan of care and expected duration. Pain level reassessed. PHLEBOTOMY UNABLE TO OBTAIN BLOOD SPECIMEN. Vital Signs: 12:39 BP 109 / 79; Pulse 59; Resp 30; Pulse Ox 100% on R/A; bp 12:50 BP 98 / 53; Pulse 74; Resp 17; Temp 97.9; Pulse Ox 94% ; bp 13:02 BP 115 / 38; Pulse 73; Resp 20; Pulse Ox 98% on 2 lpm NC; [facility] 14:00 BP 109 / 50; Pulse 77; Resp 16; Pulse Ox 98% ; 6 15:00 BP 101 / 46; Pulse 74; Resp 16; Pain 0/10; 6 16:00 BP 123 / 55; Pulse 76; Resp 16; Pulse Ox 100% ; Pain 0/10; 6 17:00 BP 138 / 79; Pulse 86; Resp 17; Pulse Ox 100% ; bp 18:07 BP 117 / 55; Pulse 84; Resp 17; Temp 97.7; Pulse Ox 100% ; Pain 0/10; jh6 NIH Stroke Scale Scores: 12:41 NIHSS Score: 9 bp 12:49 NIHSS Score: 4 bp ED Course: 12:38 Patient arrived in ED. bp 12:40 Triage completed. bp 12:[address] jh6 12:40 Inserted saline lock: 24 gauge in right hand, using aseptic technique. jh6 12:40 Patient has correct armband on for positive identification. Placed in gown. Bed in low jh6 position. Call light in reach. Adult w/ patient. 12:40 Patient placed on oxygen, on athletic monitor, on pulse oximetry. jh6 12:43 Jess Galloway, JOHNATHON is Primary Nurse. jh6 12:[address]. jh6 12:46 Anish Corado MD is Attending Physician. amadou 12:46 CT Stroke Brain w/o Contrast In Process Unspecified. EDMS 12:58 No provider procedures requiring assistance completed. jh6 13:14 XRAY Chest (1 view) In Process Unspecified. EDMS 14:19 Kulwinder Vicente DO is Hospitalizing Provider. amadou 14:[address] Patient moved to MRI. jh6 14:30 Inserted saline lock: 20 gauge in left antecubital area, using aseptic technique. jh6 14:33 CT Chest Abdomen Pelvis W/O Contrast In Process Unspecified. EDMS 14:54 Brain Wo Cont In Process Unspecified. EDMS Administered Medications: 12:55 Drug: Pepcid (famotidine) 20 mg Route: IVP; Site: right wrist; jh6 12:56 Drug: Zofran (Ondansetron) 4 mg Route: IVP; Site: right wrist; jh6 13:15 Drug: Promethazine 12.5 mg Route: IVP; Site: right hand; bp 13:15 Drug: NS 0.9% 1000 ml Route: IV; Rate: 1 bolus; Site: right hand; bp 15:00 Follow up: IV Status: Completed infusion jh6 17:00 Drug: ProTONIX (pantoprazole) 40 mg Route: IVP; Site: right hand; jh6 18:03 Follow up: Response: No adverse reaction jh6 18:08 Follow up: Response: No adverse reaction jh6 17:20 Drug: Rocephin (cefTRIAXone) 1 grams Route: IV; Rate: per protocol; Site: right hand; [facility] 18:08 Follow up: IV Status: Completed infusion [facility] Outcome: 14:21 Decision to Hospitalize by Provider. amadou 18:25 Admitted to Tele accompanied by tech, via stretcher, with oxygen, Report called to [facility] report given to Justin 18:26 Condition: stable [facility] 18:26 Instructed on the need for admit. 18:32 Patient left the ED. iw NIH Stroke Scale - NIH Stroke Score Date: 09/03/2021 Time: 12:41 Total Score = 9 1a. Level of Consciousness (LOC) - 1(Not Alert) 1b. Level of Consciousness (LOC) (Month \T\ Age) - 1(One) 1c. LOC Commands (Open \T\ Closes Eyes/Billboard Erector) - 0(Both) 2. Best Gaze (Lateral Gaze Paresis) - 0(Normal) 3. Visual Field Loss - 0(No visual loss) 4. Facial Palsy - 1(Minor Paralysis) 5a. Left Arm: Motor (10-second hold) - 1(Drift) 5b. Right Arm: Motor (10-second hold) - 1(Drift) 6a. Left Leg: Motor (5-second hold - always test supine) - 1(Drift) 6b. Right Leg: Motor (5-second hold - always test supine) - 1(Drift) 7. Limb Ataxia (finger/nose \T\ heel/harrington - test with eyes open) - 0(Absent) 8. Sensory Loss (pinprick arms/legs/face) - 0(Normal) 9. Best Language: Aphasia (description/naming/reading) - 1(Mild to moderate aphasia) 10. Dysarthria (speech clarity - read or repeat words) - 1(Mild to Moderate) 11. Extinction and Inattention (visual/tactile/auditory/spatial/personal) - 0(No abnormality) Initials: bp NIH Stroke Scale - NIH Stroke Score Date: 09/03/2021 Time: 12:49 Total Score = 4 1a. Level of Consciousness (LOC) - 1(Not Alert) 1b. Level of Consciousness (LOC) (Month \T\ Age) - 0(Both) 1c. LOC Commands (Open \T\ Closes Eyes/Billboard Erector) - 0(Both) 2. Best Gaze (Lateral Gaze Paresis) - 0(Normal) 3. Visual Field Loss - 0(No visual loss) 4. Facial Palsy - 0(Normal) 5a. Left Arm: Motor (10-second hold) - 0(No drift) 5b. Right Arm: Motor (10-second hold) - 0(No drift) 6a. Left Leg: Motor (5-second hold - always test supine) - 1(Drift) 6b. Right Leg: Motor (5-second hold - always test supine) - 1(Drift) 7. Limb Ataxia (finger/nose \T\ heel/harrington - test with eyes open) - 0(Absent) 8. Sensory Loss (pinprick arms/legs/face) - 0(Normal) 9. Best Language: Aphasia (description/naming/reading) - 0(No aphasia) 10. Dysarthria (speech clarity - read or repeat words) - 1(Mild to Moderate) 11. Extinction and Inattention (visual/tactile/auditory/spatial/personal) - 0(No abnormality) Initials: bp Signatures: Dispatcher [employer] EDAnish Umana MD MD cha Williams, Irene, RN Brendon Odom RN RN Jess Elizabeth RN RN jh6 Corrections: (The following items were deleted from the chart) 17:50 17:49 Reassessment: No changes from previously documented assessment. Patient bp and/or family updated on plan of care and expected duration. Pain level reassessed. PHLEBOTOMY AT B/S bp
--- NOTE | 2021-09-03 14:22 | EDPHYS ---
Physician Documentation [facility] Name: Irene Bolaños Age: 86 yrs Sex: Female : 1935 Arrival Date: 09/03/2021 Time: 12:38 Bed 3 Private MD: ED Physician Anish Corado HPI: 09/03 14:11 This 86 yrs old Black Female presents to ER via EMS with complaints of Altered Mental amadou Status. 14:11 The patient presents with confusion, decreased mental status, decreased responsiveness. amadou Onset: The symptoms/episode began/occurred just prior to arrival. Possible causes: CVA or TIA, low blood sugar, seizure. 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 - Social history:: Smoking status: Patient denies any tobacco usage or history of. ROS: 14:13 Constitutional: Negative for fever, chills, and weight loss, Eyes: Negative for injury, amadou pain, redness, and discharge, ENT: Negative for injury, pain, and discharge, Neck: Negative for injury, pain, and swelling, Cardiovascular: Negative for chest pain, palpitations, and edema, Respiratory: Negative for shortness of breath, cough, wheezing, and pleuritic chest pain, Abdomen/GI: Negative for abdominal pain, nausea, vomiting, diarrhea, and constipation, Back: Negative for injury and pain, : Negative for injury, bleeding, discharge, and swelling, MS/Extremity: Negative for injury and deformity, Skin: Negative for injury, rash, and discoloration, Psych: Negative for depression, anxiety, suicide ideation, homicidal ideation, and hallucinations, Allergy/Immunology: Negative for hives, rash, and allergies, Endocrine: Negative for neck swelling, polydipsia, polyuria, polyphagia, and marked weight changes, Hematologic/Lymphatic: Negative for swollen nodes, abnormal bleeding, and unusual bruising. 14:13 Neuro: Positive for altered mental status, weakness. Exam: 14:13 Constitutional: This is a well developed, well nourished patient who is awake, alert, amadou and in no acute distress. Head/Face: Normocephalic, atraumatic. Eyes: Pupils equal round and reactive to light, extra-ocular motions intact. Lids and lashes normal. Conjunctiva and sclera are non-icteric and not injected. Cornea within normal limits. Periorbital areas with no swelling, redness, or edema. ENT: Nares patent. No nasal discharge, no septal abnormalities noted. Tympanic membranes are normal and external auditory canals are clear. Oropharynx with no redness, swelling, or masses, exudates, or evidence of obstruction, uvula midline. Mucous membranes moist. Neck: Trachea midline, no thyromegaly or masses palpated, and no cervical lymphadenopathy. Supple, full range of motion without nuchal rigidity, or vertebral point tenderness. No Meningismus. Chest/axilla: Normal chest wall appearance and motion. Nontender with no deformity. No lesions are appreciated. Cardiovascular: Regular rate and rhythm with a normal S1 and S2. No gallops, murmurs, or rubs. Normal PMI, no JVD. No pulse deficits. Respiratory: Lungs have equal breath sounds bilaterally, clear to auscultation and percussion. No rales, rhonchi or wheezes noted. No increased work of breathing, no retractions or nasal flaring. Abdomen/GI: Soft, non-tender, with normal bowel sounds. No distension or tympany. No guarding or rebound. No evidence of tenderness throughout. Back: No spinal tenderness. No costovertebral tenderness. Full range of motion. Female : Normal external genitalia. Neuro: Awake and alert, GCS 15, oriented to person, place, time, and situation. Cranial nerves II-XII grossly intact. Motor strength 5/5 in all extremities. Sensory grossly intact. Cerebellar exam normal. Normal gait. Psych: Awake, alert, with orientation to person, place and time. Behavior, mood, and affect are within normal limits. 14:13 Skin: Appearance: Color: pale, Temperature: normal temperature, Moisture: normal moisture, petechiae, not noted, ecchymosis, not noted, flushing, not noted. 14:13 Neuro: Orientation: unable to test, Mentation: slow to respond, Memory: unable to test, Cranial nerves: is grossly normal based on the patient's age, no acute changes, Cerebellar function: unable to test, Motor: is grossly normal based on the patient's age, no acute changes, moves all fours, strength is 5/5 in all extremities, Sensation: unable to test, Gait: not tested. Babinski testing is normal, seizure activity, is not displayed by the patient. 14:17 Cardiovascular: [facility] 14:17 ECG was reviewed by the Attending Physician. Vital Signs: 12:39 BP 109 / 79; Pulse 59; Resp 30; Pulse Ox 100% on R/A; bp 12:50 BP 98 / 53; Pulse 74; Resp 17; Temp 97.9; Pulse Ox 94% ; bp 13:02 BP 115 / 38; Pulse 73; Resp 20; Pulse Ox 98% on 2 lpm NC; [facility] 14:00 BP 109 / 50; Pulse 77; Resp 16; Pulse Ox 98% ; [facility] 15:00 BP 101 / 46; Pulse 74; Resp 16; Pain 0/10; [facility] 16:00 BP 123 / 55; Pulse 76; Resp 16; Pulse Ox 100% ; Pain 0/10; [facility] 17:00 BP 138 / 79; Pulse 86; Resp 17; Pulse Ox 100% ; bp 18:07 BP 117 / 55; Pulse 84; Resp 17; Temp 97.7; Pulse Ox 100% ; Pain 0/10; 6 NIH Stroke Scale Scores: 12:41 NIHSS Score: 9 bp 12:49 NIHSS Score: 4 bp MDM: 12:46 Patient medically screened. [facility] 09/03 12:40 Order name: Basic Metabolic Panel; Complete Time: 14:04 [facility] 09/03 12:40 Order name: CBC with Diff; Complete Time: 14:04 [facility] 09/03 12:40 Order name: LFT's; Complete Time: 14:04 [facility] 09/03 12:40 Order name: Magnesium; Complete Time: 14:04 [facility] 09/03 12:40 Order name: NT PRO-BNP; Complete Time: 14:04 [facility] 09/03 12:40 Order name: PT-INR; Complete Time: 13:19 [facility] 09/03 12:40 Order name: Troponin (emerg Dept Use Only); Complete Time: 14:04 [facility] 09/03 12:40 Order name: Lipase; Complete Time: 14:04 [facility] 09/03 13:19 Order name: glucometer results - FOR PT WITH NO ID; Complete Time: 14:04 09/03 13:24 Order name: CBC Smear Scan; Complete Time: 14:04 [facility] 09/03 14:13 Order name: Lactate [facility] 09/03 14:13 Order name: Blood Culture Adult (2) [facility] 09/03 14:13 Order name: Type And Screen [facility] 09/03 14:27 Order name: COVID-19 SARS RT PCR (Document "Date of Onset" if Symptomatic); Complete iw Time: 16:25 09/03 12:40 Order name: XRAY Chest (1 view); Complete Time: 13:23 [facility] 09/03 12:40 Order name: EKG; Complete Time: 12:41 [facility] 09/03 12:40 Order name: Cardiac monitoring; Complete Time: 12:48 [facility] 09/03 12:40 Order name: EKG - Nurse/Tech; Complete Time: 12:56 [facility] 09/03 12:40 Order name: IV Saline Lock; Complete Time: 12:48 [facility] 09/03 12:40 Order name: CT Stroke Brain w/o Contrast; Complete Time: 13:19 [facility] 09/03 14:11 Order name: Brain Wo Cont; Complete Time: 16:25 [facility] 09/03 14:13 Order name: CT Chest Abdomen Pelvis W/O Contrast; Complete Time: 16:25 [facility] 09/03 12:40 Order name: O2 Per Protocol; Complete Time: 12:49 [facility] 09/03 12:40 Order name: O2 Sat Monitoring; Complete Time: 12:48 [facility] 09/03 14:06 Order name: Alarcon [facility] 09/03 14:11 Order name: Misc. Order: USG LINE [facility] EC:17 Rate is 72 beats/min. Rhythm is regular. QRS [place] is Normal. [place] interval is normal. QRS amadou interval is normal. QT interval is normal. No Q waves. T waves are Normal. No ST changes noted. Clinical impression: Abnormal EKG without significant change and No evidence of ischemia. Interpreted by me. Reviewed by me. Administered Medications: 12:55 Drug: Pepcid (famotidine) 20 mg Route: IVP; Site: right wrist; jh6 12:56 Drug: Zofran (Ondansetron) 4 mg Route: IVP; Site: right wrist; jh6 13:15 Drug: Promethazine 12.5 mg Route: IVP; Site: right hand; bp 13:15 Drug: NS 0.9% 1000 ml Route: IV; Rate: 1 bolus; Site: right hand; bp 15:00 Follow up: IV Status: Completed infusion jh6 17:00 Drug: ProTONIX (pantoprazole) 40 mg Route: IVP; Site: right hand; 6 18:03 Follow up: Response: No adverse reaction jh6 18:08 Follow up: Response: No adverse reaction 6 17:20 Drug: Rocephin (cefTRIAXone) 1 grams Route: IV; Rate: per protocol; Site: right hand; 6 18:08 Follow up: IV Status: Completed infusion 6 Disposition Summary: 09/03/21 14:21 Hospitalization Ordered Hospitalization Status: Inpatient Admission amadou Provider: Kulwinder Vicente cha Location: Telemetry/MedSurg (Inpatient) amadou Condition: Fair amadou Problem: new amadou Symptoms: have improved amadou Bed/Room Type: Standard amadou Room Assignment: 401(09/03/21 17:55) bd Diagnosis - Altered mental status, unspecified amadou - Anemia, unspecified amadou - Type 2 diabetes mellitus with hyperglycemia amadou - Unspecified kidney failure - CHRONIC amadou - GI Bleed/ Gastrointestinal hemorrhage, unspecified amadou Forms: - Medication Reconciliation Form amadou - SBAR form amadou NIH Stroke Scale - NIH Stroke Score Date: 09/03/2021 Time: 12:41 Total Score = 9 1a. Level of Consciousness (LOC) - 1(Not Alert) 1b. Level of Consciousness (LOC) (Month \\T\\ Age) - 1(One) 1c. LOC Commands (Open \\T\\ Closes Eyes/Shearer Helper) - 0(Both) 2. Best Gaze (Lateral Gaze Paresis) - 0(Normal) 3. Visual Field Loss - 0(No visual loss) 4. Facial Palsy - 1(Minor Paralysis) 5a. Left Arm: Motor (10-second hold) - 1(Drift) 5b. Right Arm: Motor (10-second hold) - 1(Drift) 6a. Left Leg: Motor (5-second hold - always test supine) - 1(Drift) 6b. Right Leg: Motor (5-second hold - always test supine) - 1(Drift) 7. Limb Ataxia (finger/nose \\T\\ heel/har[place] - test with eyes open) - 0(Absent) 8. Sensory Loss (pinprick arms/legs/face) - 0(Normal) 9. Best Language: Aphasia (description/naming/reading) - 1(Mild to moderate aphasia) 10. Dysarthria (speech clarity - read or repeat words) - 1(Mild to Moderate) 11. Extinction and Inattention (visual/tactile/auditory/spatial/personal) - 0(No abnormality) Initials: bp NIH Stroke Scale - NIH Stroke Score Date: 09/03/2021 Time: 12:49 Total Score = 4 1a. Level of Consciousness (LOC) - 1(Not Alert) 1b. Level of Consciousness (LOC) (Month \\T\\ Age) - 0(Both) 1c. LOC Commands (Open \\T\\ Closes Eyes/Shearer Helper) - 0(Both) 2. Best Gaze (Lateral Gaze Paresis) - 0(Normal) 3. Visual Field Loss - 0(No visual loss) 4. Facial Palsy - 0(Normal) 5a. Left Arm: Motor (10-second hold) - 0(No drift) 5b. Right Arm: Motor (10-second hold) - 0(No drift) 6a. Left Leg: Motor (5-second hold - always test supine) - 1(Drift) 6b. Right Leg: Motor (5-second hold - always test supine) - 1(Drift) 7. Limb Ataxia (finger/nose \\T\\ heel/har[place] - test with eyes open) - 0(Absent) 8. Sensory Loss (pinprick arms/legs/face) - 0(Normal) 9. Best Language: Aphasia (description/naming/reading) - 0(No aphasia) 10. Dysarthria (speech clarity - read or repeat words) - 1(Mild to Moderate) 11. Extinction and Inattention (visual/tactile/auditory/spatial/personal) - 0(No abnormality) Initials: bp Signatures: Dispatcher [employer] EDMS Ariela Jasso Corey, MD MD cha Mickail, Joel, PA PA jmm Peltier, Brian, RN RN Jess Elizabeth RN RN jh6 Corrections: (The following items were deleted from the chart) 14:11 14:07 MR STROKE PROTOCOL+MRI.SUSAN.NICHOL ordered. EDMS EDMS 17:55 14:21 amadou son
--- NOTE | 2021-09-03 14:53 | RAD REPORT ---
EXAM DESCRIPTION: CT - Chest Abd Pelvis Wo Con - 09/03/2021 2:33 pm CLINICAL HISTORY: Cough/abdominal pain TECHNIQUE: Computed axial tomography of the chest, abdomen and pelvis was obtained. Oral contrast wa s given. IV contrast was not requested. All CT scans are performed using dose optimization technique as appropriate and may include automated exposure control or mA/KV adjustment according to patient size. FINDINGS: The evaluation of mediastinum, cyndee, vessels and solid organs is limited secondary to the lack of IV contrast administration Mild bilateral ground-glass opacities within the lungs. Cardiomegaly No mediastinal or hilar lymphadenopathy is seen. A pleural effusion is not present. A pericardial effusion is not seen. The liver, spleen, pancreas, adrenals and kidneys appear grossly normal There is no evidence of diverticulitis. Moderate amount of stool within the colon. Rectum is mildly d istended with stool. IMPRESSION: Mild bilateral ground-glass opacities within the lungs indicative of a mild alveolitis Moderate amount of stool within the colon. Rectum is mildly distended with stool.
--- NOTE | 2021-09-03 15:32 | RAD REPORT ---
EXAM DESCRIPTION: MRI - Brain Wo Cont - 09/03/2021 3:08 pm CLINICAL HISTORY: Confusion COMPARISON: Head CT September 03, 2021 TECHNIQUE: Axial, sagittal, and coronal magnetic resonance images of the brain were obtained. FINDINGS: Images are degraded by patient motion artifact. No significant abnormal signal within the brain is seen. Diffusion-weighted/ADC mapping does not reveal evidence of acute infarction. The ventricles are normal caliber. An extra-axial fluid collection is not noted. Mild to moderate signal left mastoids may indicate a mastoiditis IMPRESSION: No gross acute intracranial abnormality seen
[2021-09-03] MEDS ORDERED: CEFTRIAXONE 1000 MG/VIAL ONE (15:49)
[2021-09-03] MEDS ORDERED: PANTOPRAZOLE 40 MG INJ ONE (15:49)
[2021-09-03] MEDS ORDERED: NA CHLORIDE 0.9% 50 ML ONE (15:49)
--- NOTE | 2021-09-03 16:42 | P.HP ---
Certification for Inpatient Patient admitted to: Observation With expected LOS: <2 Midnights Patient will require the following post-hospital care: None Practitioner: I am a practitioner with admitting privileges, knowledge of patient current condition, hospital course, and medical plan of care. Services: Services provided to patient in accordance with Admission requirements found in Title 42 Section 412.3 of the Code of Federal Regulations Patient History Date of Service: 09/03/21 Primary Care Provider: Dr. Motta; Hematology-Dr. Richardson Reason for admission: Altered mental status History of Present Illness: 86-year-old -Citizen Of [place] female with history of diabetes, hypertension, CHF, anemia of chronic disease with iron deficiency. Patient presented to the emergency room with acute encephalopathy. Daughter reports patient was doing well. Patient is fairly independent. She went to hematology office today for IV iron infusion. She has not had IV infusion of iron since her recent hospitalization. Patient finished with the infusion. She went to the bathroom. Thereafter patient appeared confused. Patient not responding appropriately. Patient was given fluids as hypoglycemia was suspected. EMS was called. Patient brought in for further evaluation. In the ER patient was evaluated. Vital signs stable. CBC stable with hemoglobin of 10.2. White count normal 6.0. Troponin unremarkable. Sodium 143, potassium 4.4. BUN of 46, creatinine 1.53 with a GFR of 39. Glucose 124. CT chest/abdomen/pelvis unremarkable except for constipation. CT head unremarkable. MRI unremarkable. Patient now stable. Patient will be admitted for observation. Daughter had reported patient had been complaining of some epigastric pain. Andrey vera also reports patient recently hospitalized about a month ago at [facility]. She was given transfusion of blood at that time with IV iron. Patient was to have GI work-up at that time but patient refused. Since that time patient has been followed up at hematology office. Allergies No Known Allergies Allergy (Verified 10/21/18 08:06) Home medications list reviewed: Yes Home Medications: Acetaminophen [Tylenol Arthritis] 2 tab PO PRN PRN 09/16/18 Aspirin [Aspirin EC 81 MG] 81 mg PO DAILY 09/16/18 Cholecalciferol (Vitamin D3) [Vitamin D 1000 Iu Tab] 1,000 unit PO DAILY 09/16/18 Estradiol [Estrace] 1 kaz VG DAILY 09/16/18 Furosemide [Lasix] 40 mg PO DAILY 09/16/18 Insulin NPH Hum/Reg Insulin Hm [Humulin 70/30 Kwikpen] 30 unit SQ DAILY AT SUPPER 09/16/18 Insulin NPH Hum/Reg Insulin Hm [Humulin 70/30 Kwikpen] 50 unit SQ BREAKFAST 09/16/18 LIDOCAINE 5% Ointment [Lidocaine HCl*] 1 appl TP DAILYPRN PRN 09/16/18 Losartan Potassium 100 mg PO DAILY AFTER SUPPER 09/16/18 Multivitamin [Multivitamins] 1 each PO DAILY 09/16/18 Simvastatin 40 mg PO DAILY 09/16/18 Travoprost [Travatan Z*] 1 gtt EACH EYE DAILY 09/16/18 carvediloL [Coreg] 3.125 mg PO [id number] 09/16/18 Dextrose [Glucose] 2 gm PO PRN PRN 10/21/18 - Past Medical/Surgical History Diabetic: Yes -: Diabetes mellitus type 2, insulin dependent -: HTN -: Hyperlipidemia -: Cataract -: Cystocele/rectocele -: Chronic renal disease stage III -: CAD with prior CABG -: Chronic diastolic CHF -: CABG -: Bilateral tubal ligation -: Cholecystectomy -: Cataract removal -: Hysteoscopy/D&C Psychosocial/ Personal History: Patient is a . Lives at home. - Family History Family History: Reviewed- Non-Contributory - Family History Mother -: Heart disease, Diabetes - Social History Smoking Status: Never smoker Alcohol use: No CD- Drugs: No Caffeine use: No Place of Residence: Home Review of Systems General: As per HPI Eyes: Unremarkable ENT: Unremarkable Respiratory: Unremarkable Cardiovascular: Unremarkable Gastrointestinal: Abdominal Pain, Constipation, As per HPI Genitourinary: Unremarkable Musculoskeletal: Unremarkable Integumentary: Unremarkable Neurological: As per HPI Lymphatics: Unremarkable Physical Examination - Studies Laboratory Data (last 24 hrs) 09/03/21 13:00: PT 11.9, INR 1.03 09/03/21 13:00: WBC 6.00, Hgb 10.2 L, Hct 33.6 L, Plt Count 192 09/03/21 13:00: Sodium 143, Potassium 4.4, BUN 46 H, Creatinine 1.53 H, Glucose 124 H, Magnesium 2.4, Total Bilirubin 0.3, AST 17, ALT 15, Alkaline Phosphatase 73, Lipase 22 L Assessment and Plan - Plan COVID: negative CT chest/abdomen/pelvis: FINDINGS: The evaluation of mediastinum, cyndee, vessels and solid organs is limited secondary to the lack of IV contrast administration Mild bilateral ground-glass opacities within the lungs. Cardiomegaly No mediastinal or hilar lymphadenopathy is seen. A pleural effusion is not present. A pericardial effusion is not seen. The liver, spleen, pancreas, adrenals and kidneys appear grossly normal There is no evidence of diverticulitis. Moderate amount of stool within the colon. Rectum is mildly distended with stool. IMPRESSION: Mild bilateral ground-glass opacities within the lungs indicative of a mild alveolitis Moderate amount of stool within the colon. Rectum is mildly distended with stool. CT head: COMPARISON: No comparisons TECHNIQUE: All CT scans are performed using dose optimization technique as appropriate and may include automated exposure control or mA/KV adjustment according to patient size. FINDINGS: No intracranial hemorrhage, hydrocephalus or extra-axial fluid collection.No areas of brain edema or evidence of midline shift. Mild chronic small vessel ischemic changes. Intracranial atherosclerosis. The paranasal sinuses and mastoids are clear. The calvarium is intact. IMPRESSION: No acute intracranial abnormality. MRI head: COMPARISON: Head CT September 03, 2021 TECHNIQUE: Axial, sagittal, and coronal magnetic resonance images of the brain were obtained. FINDINGS: Images are degraded by patient motion artifact. No significant abnormal signal within the brain is seen. Diffusion-weighted/ADC mapping does not reveal evidence of acute infarction. The ventricles are normal caliber. An extra-axial fluid collection is not noted. Mild to moderate signal left mastoids may indicate a mastoiditis IMPRESSION: No gross acute intracranial abnormality seen Physical Exam: GENERAL: The patient is a well-developed, well-nourished, in no apparent distress. Alert and oriented x3. VITAL SIGNS: Reviewed HEENT: Head is normocephalic and atraumatic. Extraocular muscles are intact. Pupils are equal, round, and reactive to light and accommodation. Nares appeared normal. Mouth is well hydrated and without lesions. Mucous membranes are moist. Patient with hard of hearing. NECK: Supple. No carotid bruits. No lymphadenopathy or thyromegaly. LUNGS: Clear to auscultation. No crackles or wheezes are heard. HEART: Regular rate and rhythm, no appreciable gallops, rubs, murmurs or extra heart sounds ABDOMEN: Soft, nontender, and nondistended. Positive bowel sounds. No hepatosplenomegaly was noted. EXTREMITIES: Without any cyanosis, clubbing, rash, lesions or peripheral edema. NEUROLOGIC: The patient is oriented to person, place and time. Strength and sensation are grossly intact. Face is symmetric. SKIN: Normal color, turgor and temperature. No ulcerations or rashes noted. Impression: Acute encephalopathy likely from IV iron infusion with history of anemia of chronic disease with iron deficiency Diabetes mellitus type 2 Hypertension Chronic diastolic CHF Chronic renal failure stage III Hyperlipidemia GERD Constipation Plan: Acute encephalopathy likely from IV iron infusion with history of anemia of chronic disease with iron deficiency: Patient will be monitored and reserved overnight. No evidence of infection. No evidence of stroke. Acute encephalopathy likely related to iron infusion earlier. Patient appears to be back to her baseline. We will continue with IV fluids. Will monitor overnight. Patient should have GI work-up as an outpatient. Recently hospitalized at [facility] for anemia and given transfusion. Patient refused GI work-up at that time. Anticipate home discharge tomorrow. Diabetes mellitus type 2: We will continue Accu-Cheks and sliding scale. Hypertension: Restart home medication. For now continue carvedilol and losartan. Chronic diastolic CHF: Continue Lasix. Chronic renal failure stage III: Recheck lab tomorrow. Accu-Cheks in place. Electrolyte protocol in place. Hyperlipidemia: Obtain and verify home medication. GERD: Patient reported some epigastric pain. Likely underlying GERD. Will start Protonix. Patient should have GI work-up as an outpatient. Constipation: We will provide stool softener. Code Status: Full Code DVT prophylaxis: Heparin Advanced Care Planning-30 minutes: Home at discharge Discharge Plan: Home Plan to discharge in: 24 Hours - Advance Directives Does patient have a Living Will: No Does patient have a Durable POA for Healthcare: No - Code Status/Comfort Care Code Status Assessed: Yes (Full code) Time Spent Managing Pts Care (In Minutes): 55
[2021-09-03] MEDS ORDERED: ACETAMINOPHEN 500 MG TAB PO PRN (18:56)
[2021-09-03] MEDS ORDERED: ONDANSETRON 4 MG/2 ML VIAL IV PRN (18:56)
[2021-09-03] MEDS ORDERED: NACHLORIDE 0.45% 1,000 ML IV SCH (18:56)
[2021-09-03] MEDS ORDERED: HEPARIN 5000 UNIT/ML 1 ML VIAL SQ SCH (21:00)
[2021-09-03] MEDS: INSULIN -REGULAR HUMAN 50 UNIT/0.5 ML ML SQ SCH (21:00)
[2021-09-03 22:08] VITALS: BMI 33.4
[2021-09-03] MEDS: LOSARTAN POTASSIUM 50 MG TABLET PO SCH (22:25)
[2021-09-03] MEDS: carvediloL 3.125 MG TAB PO SCH (22:25)
[2021-09-04 05:25] LABS: Absolute Lymphocytes (CBC) 1.1 K/uL (0.7-4.9); Hematocrit 25.9 % (36.0-45.0); MPV 10.2 fL (7.6-11.3); RBC Red Blood Cell Count 3.46 M/uL (3.86-4.86)
[2021-09-04 05:46] LABS: Magnesium 2.3 mg/dL (1.8-2.4); Potassium 4.3 mmol/L (3.5-5.1); Thyroid Stimulating Hormone 0.591 uIU/mL (0.360-3.740)
[2021-09-04] MEDS: carvediloL 3.125 MG TAB PO SCH ×2 (05:47→17:35)
--- NOTE | 2021-09-04 06:04 | P.PN ---
Subjective Date of Service: 09/04/21 Primary Care Provider: Dr. Motta; Hematology-Dr. Richardson Chief Complaint: Altered mental status Physical Examination - Vital Signs Temperature: 97.4 F Blood Pressure: 111/51 Pulse: 82 Respirations: 17 Pulse Ox (%): 94 - Studies Laboratory Data (last 24 hrs) 09/03/21 13:00: PT 11.9, INR 1.03 09/03/21 13:00: WBC 6.00, Hgb 10.2 L, Hct 33.6 L, Plt Count 192 09/03/21 13:00: Sodium 143, Potassium 4.4, BUN 46 H, Creatinine 1.53 H, Glucose 124 H, Magnesium 2.4, Total Bilirubin 0.3, AST 17, ALT 15, Alkaline Phosphatase 73, Lipase 22 L Assessment & Plan Physician Review Additional Text: COVID: negative CT chest/abdomen/pelvis: FINDINGS: The evaluation of mediastinum, cyndee, vessels and solid organs is limited secondary to the lack of IV contrast administration Mild bilateral ground-glass opacities within the lungs. Cardiomegaly No mediastinal or hilar lymphadenopathy is seen. A pleural effusion is not present. A pericardial effusion is not seen. The liver, spleen, pancreas, adrenals and kidneys appear grossly normal There is no evidence of diverticulitis. Moderate amount of stool within the colon. Rectum is mildly distended with stool. IMPRESSION: Mild bilateral ground-glass opacities within the lungs indicative of a mild alveolitis Moderate amount of stool within the colon. Rectum is mildly distended with stool. CT head: COMPARISON: No comparisons TECHNIQUE: All CT scans are performed using dose optimization technique as appropriate and may include automated exposure control or mA/KV adjustment according to patient size. FINDINGS: No intracranial hemorrhage, hydrocephalus or extra-axial fluid collection.No areas of brain edema or evidence of midline shift. Mild chronic small vessel ischemic changes. Intracranial atherosclerosis. The paranasal sinuses and mastoids are clear. The calvarium is intact. IMPRESSION: No acute intracranial abnormality. MRI head: COMPARISON: Head CT September 03, 2021 TECHNIQUE: Axial, sagittal, and coronal magnetic resonance images of the brain were obtained. FINDINGS: Images are degraded by patient motion artifact. No significant abnormal signal within the brain is seen. Diffusion-weighted/ADC mapping does not reveal evidence of acute infarction. The ventricles are normal caliber. An extra-axial fluid collection is not noted. Mild to moderate signal left mastoids may indicate a mastoiditis IMPRESSION: No gross acute intracranial abnormality seen Physical Exam: GENERAL: The patient is a well-developed, well-nourished, in no apparent distress. Alert and oriented x3. VITAL SIGNS: Reviewed HEENT: Head is normocephalic and atraumatic. Extraocular muscles are intact. Pupils are equal, round, and reactive to light and accommodation. Nares appeared normal. Mouth is well hydrated and without lesions. Mucous membranes are moist. Patient with hard of hearing. NECK: Supple. No carotid bruits. No lymphadenopathy or thyromegaly. LUNGS: Clear to auscultation. No crackles or wheezes are heard. HEART: Regular rate and rhythm, no appreciable gallops, rubs, murmurs or extra heart sounds ABDOMEN: Soft, nontender, and nondistended. Positive bowel sounds. No hepatosplenomegaly was noted. EXTREMITIES: Without any cyanosis, clubbing, rash, lesions or peripheral edema. NEUROLOGIC: The patient is oriented to person, place and time. Strength and sensation are grossly intact. Face is symmetric. SKIN: Normal color, turgor and temperature. No ulcerations or rashes noted. Impression: Acute encephalopathy likely from IV iron infusion with history of anemia of chronic disease with iron deficiency Diabetes mellitus type 2 Hypertension Chronic diastolic CHF Chronic renal failure stage III Hyperlipidemia GERD Constipation Plan: Acute encephalopathy likely from IV iron infusion with history of anemia of chronic disease with iron deficiency: Patient will be monitored and reserved overnight. No evidence of infection. No evidence of stroke. Acute encephalopathy likely related to iron infusion earlier. Patient appears to be back to her baseline. We will continue with IV fluids. Will monitor overnight. Patient should have GI work-up as an outpatient. Recently hospitalized at [facility] for anemia and given transfusion. Patient refused GI work-up at that time. Anticipate home discharge tomorrow. Diabetes mellitus type 2: We will continue Accu-Cheks and sliding scale. Hypertension: Restart home medication. For now continue carvedilol and losartan. Chronic diastolic CHF: Continue Lasix. Chronic renal failure stage III: Recheck lab tomorrow. Accu-Cheks in place. Electrolyte protocol in place. Hyperlipidemia: Obtain and verify home medication. GERD: Patient reported some epigastric pain. Likely underlying GERD. Will start Protonix. Patient should have GI work-up as an outpatient. Constipation: We will provide stool softener. Code Status: Full Code DVT prophylaxis: Heparin Advanced Care Planning-30 minutes: Home at discharge
[2021-09-04] MEDS ORDERED: PANTOPRAZOLE 40MG TABLET PO SCH (06:30)
[2021-09-04 07:22] LABS: Hematocrit 26.3 % (36.0-45.0)
[2021-09-04] MEDS: INSULIN -REGULAR HUMAN 50 UNIT/0.5 ML ML SQ SCH ×3 (07:30→16:20)
[2021-09-04] MEDS: LOSARTAN POTASSIUM 50 MG TABLET PO SCH (08:59)
[2021-09-04] MEDS ORDERED: THIAMINE HCL 100 MG TABLET PO SCH (09:00)
[2021-09-04] MEDS ORDERED: FOLIC ACID 1 MG TABLET PO SCH (09:00)
[2021-09-04] MEDS ORDERED: ASPIRIN EC 81 MG TAB PO SCH (09:00)
[2021-09-04] MEDS ORDERED: FUROSEMIDE 40 MG TABLET PO SCH (09:00)
--- NOTE | 2021-09-04 12:05 | EKG ---
Test Date: 2021-09-03 Test Time: 12:50:04 Forklift Mechanic: HARI MEASUREMENT RESULTS: Intervals: Rate: 72 MA: 172 QRSD: 134 QT: 468 QTc: 512 [place]: P: 73 MA: 172 QRS: -62 T: 55 INTERPRETIVE STATEMENTS: Normal sinus rhythm Right bundle branch block Left anterior fascicular block Bifascicular block Abnormal ECG Compared to ECG 01/18/2014 10:18:03 Right bundle-branch block now present Left anterior fascicular block now present Bifascicular block now present Myocardial infarct finding no longer present Electronically Signed On 09-04-21 12:02:54 TIME STUDY ENGINEER by Chas Soliz
[2021-09-04] MEDS ORDERED: NA CHLORIDE 0.9% 1,000 ML ONE (13:43)
[2021-09-04] MEDS ORDERED: LIDOCAINE 1% MPF 30 ML VIAL ONE (14:24)
[2021-09-04] MEDS ORDERED: propofoL 200 MG/20 ML VIAL IV ONE (14:24)
[2021-09-04 15:11] VITALS: O2SAT 95
--- NOTE | 2021-09-04 16:13 | P.DS ---
Admission Date: 09/03/21 Discharge Date: 09/04/21 Primary Care Provider: Dr. Motta; Hematology-Dr. Richardson Disposition: ROUTINE DISCHARGE Discharge Condition: GOOD Reason for Admission: Altered mental status Consultations: GI-Dr. Khalil Procedures: COVID: negative CT chest/abdomen/pelvis: FINDINGS: The evaluation of mediastinum, cyndee, vessels and solid organs is limited secondary to the lack of IV contrast administration Mild bilateral ground-glass opacities within the lungs. Cardiomegaly No mediastinal or hilar lymphadenopathy is seen. A pleural effusion is not present. A pericardial effusion is not seen. The liver, spleen, pancreas, adrenals and kidneys appear grossly normal There is no evidence of diverticulitis. Moderate amount of stool within the colon. Rectum is mildly distended with stool. IMPRESSION: Mild bilateral ground-glass opacities within the lungs indicative of a mild alveolitis Moderate amount of stool within the colon. Rectum is mildly distended with stool. CT head: COMPARISON: No comparisons TECHNIQUE: All CT scans are performed using dose optimization technique as appropriate and may include automated exposure control or mA/KV adjustment according to patient size. FINDINGS: No intracranial hemorrhage, hydrocephalus or extra-axial fluid collection.No areas of brain edema or evidence of midline shift. Mild chronic small vessel ischemic changes. Intracranial atherosclerosis. The paranasal sinuses and mastoids are clear. The calvarium is intact. IMPRESSION: No acute intracranial abnormality. MRI head: COMPARISON: Head CT September 03, 2021 TECHNIQUE: Axial, sagittal, and coronal magnetic resonance images of the brain were obtained. FINDINGS: Images are degraded by patient motion artifact. No significant abnormal signal within the brain is seen. Diffusion-weighted/ADC mapping does not reveal evidence of acute infarction. The ventricles are normal caliber. An extra-axial fluid collection is not noted. Mild to moderate signal left mastoids may indicate a mastoiditis IMPRESSION: No gross acute intracranial abnormality seen EGD: No complications noted. Small hiatal hernia noted. Mild gastritis in the antrum, status post biopsies Multiple 3 erosions in the antrum Small bowel biopsies obtained with history of iron deficiency anemia Recommendations: Follow-up biopsy. PPI. Medical Problem List: Acute encephalopathy likely from IV iron infusion with history of anemia of chronic disease with iron deficiency status post EGD showing small hiatal hernia, mild gastritis, multiple erosions to the antrum, and biopsies obtained from antrum and small bowel Diabetes mellitus type 2 Hypertension Chronic diastolic CHF Chronic renal failure stage III Hyperlipidemia GERD Constipation Depression Brief History of Present Illness: 86-year-old -[place] female with history of diabetes, hypertension, CHF, anemia of chronic disease with iron deficiency. Patient presented to the emergency room with acute encephalopathy. Daughter reports patient was doing well. Patient is fairly independent. She went to hematology office today for IV iron infusion. She has not had IV infusion of iron since her recent hospitaliz ation. Patient finished with the infusion. She went to the bathroom. Thereafter patient appeared confused. Patient not responding appropriately. Patient was given fluids as hypoglycemia was suspected. EMS was called. Patient brought in for further evaluation. In the ER patient was evaluated. Vital signs stable. CBC stable with hemoglobin of 10.2. White count normal 6.0. Troponin unremarkable. Sodium 143, potassium 4.4. BUN of 46, creatinine 1.53 with a GFR of 39. Glucose 124. CT chest/abdomen/pelvis unremarkable except for constipation. CT head unremarkable. MRI unremarkable. Patient now stable. Patient will be admitted for observation. Daughter had reported patient had been complaining of some epigastric pain. Daughter also reports patient recently hospitalized about a month ago at [facility]. She was given transfusion of blood at that time with IV iron. Patient was to have GI work-up at that time but patient refused. Since that time patient has been followed up at hematology office. Hospital Course: Patient presented with acute encephalopathy likely related to IV iron infusion. Patient with history of iron deficiency anemia and chronic disease. Patient re cently evaluated at [facility]. She received transfusion but no work-up was done. Patient was given IV iron by her hematology prior to admission. Patient may have had a reaction to this. The patient was monitored overnight. Patient had a positive guaiac. Hemoglobin was monitored. Hemoglobin did drop from 10 to about 8 but remained stable. No need for transfusion was required. GI was consulted to further evaluate. GI recommended EGD. EGD showed small hiatal hernia with mild gastritis. Multiple erosions noted to the antrum. Biopsies from the antrum and small bowel were obtained. Patient has done well. Patient back to baseline. No evidence of stroke noted on CT scan and MRI. At discharge patient may continue with iron 325 mg 1 pill twice daily and Protonix 40 mg 1 pill daily. Recommend follow-up with GI in 2 weeks to follow-up his hospitalization. Patient will need to complete the GI work-up with colonoscopy as an outpatient. This could be done with the help of GI. Recommend follow-up with hematology in 1 to 2 weeks to follow-up this hospitalization. If IV iron is to be continued as an outpatient, consider IV iron infusion at a slower rate in the future. This can be further addressed by hematology. Recommend to recheck labCBC in 1 to 2 weeks to monitor progress. Recommend follow-up with PCP in 1 week to follow-up his hospitalization and continue her care. Patient with diabetes mellitus type 2. Overall stable. At discharge patient may continue with her current medications insulin 70/30 40 units every a.m. and 20 units subcu every p.m. Patient also takes Tradjenta 5 mg daily. Recommend to maintain blood sugar less than 140 fasting and less than 200 after meals. Further adjustment can be done by her PCP if blood sugars remain above 200. Will need to monitor for hypoglycemia. Further adjustment in her insulin may be required if blood sugars remain less than 100. Recommend follow-up with her PCP in 1 week to follow-up this hospitalization and further monitor her care. Recommend to recheck hemoglobin A1c every 3 months. Patient with hypertension. At discharge she may continue with carvedilol 3.125 mg 1 pill twice daily and losartan 100 mg daily. Recommend to maintain blood pressure less than 130/80. Further adjustment can be done by her PCP. Patient with chronic diastolic CHF. Overall stable. At discharge patient will continue with Lasix 40 mg 1 pill twice daily. Recommend to continue 1500 cc/day fluid restriction and low-salt diet. Recommend to monitor her weight daily. Further adjustment in medication can be done by her PCP. Patient with chronic renal disease stage III. Overall stable. Patient can follow-up with nephrology as an outpatient to further address. Recommend no further use of nonsteroidal anti-inflammatories. Future medications may need to be renally dosed. Patient with hyperlipidemia. At discharge patient will continue with her current medicationZocor 40 mg daily. Patient with constipation. Patient may take stool softener dailydocusate 100 mg daily. This will be provided. Continue with above recommendations for colonoscopy as an outpatient. Patient with depression. At discharge patient will continue with Zoloft 25 mg daily. Vital Signs/Physical Exam: Temp Pulse Resp BP Pulse Ox 97.6 F 88 16 121/50 L 94 09/04/21 15:09 09/04/21 15:09 09/04/21 15:09 09/04/21 15:09 09/04/21 12:00 General: Alert, In no apparent distress, Oriented x3, Cooperative HEENT: Atraumatic Neck: Supple Respiratory: Clear to auscultation bilaterally, Normal air movement Cardiovascular: Normal pulses, Regular rate/rhythm Gastrointestinal: Normal bowel sounds Musculoskeletal: No erythema, No tenderness, No warmth Integumentary: No tenderness/swelling Neurological: Normal speech, Normal strength at 5/5 x4 extr, Normal tone Laboratory Data at Discharge: WBC 5.70 K/uL (4.3-10.9) 09/04/21 05:03 Hgb 8.0 g/dL (12.0-15.0) L 09/04/21 06:30 Hct 26.3 % (36.0-45.0) L 09/04/21 06:30 Plt Count 154 K/uL (152-406) 09/04/21 05:03 PT 11.9 SECONDS (9.5-12.5) 09/03/21 13:00 INR 1.03 09/03/21 13:00 Sodium 143 mmol/L (136-145) 09/04/21 05:03 Potassium 4.3 mmol/L (3.5-5.1) 09/04/21 05:03 BUN 45 mg/dL (7-18) H 09/04/21 05:03 Creatinine 1.73 mg/dL (0.55-1.3) H 09/04/21 05:03 Glucose 208 mg/dL (74-106) H 09/04/21 05:03 Magnesium 2.3 mg/dL (1.8-2.4) 09/04/21 05:03 Total Bilirubin 0.3 mg/dL (0.2-1.0) 09/03/21 13:00 AST 17 U/L (15-37) 09/03/21 13:00 ALT 15 U/L (12-78) 09/03/21 13:00 Alkaline Phosphatase 73 U/L (45-117) 09/03/21 13:00 Lipase 22 U/L (73-393) L 09/03/21 13:00 Home Medications: Furosemide [Lasix*] 40 mg PO BID 09/16/18 Losartan Potassium 100 mg PO DAILY AFTER SUPPER 09/16/18 Simvastatin 40 mg PO DAILY 09/16/18 Travoprost [Travatan Z*] 1 gtt EACH EYE BEDTIME 09/16/18 carvediloL [Coreg*] 3.125 mg PO BID 09/16/18 Docusate [Colace Cap*] 100 mg PO DAILY #30 cap 09/04/21 Ferrous Sulfate [Iron] 325 mg PO BID #60 tablet 09/04/21 Hum Insulin NPH/Reg Insulin Hm [Humulin 70-30 Vial] 40 unit SQ BREAKFAST 09/04/21 Insulin NPH Hum/Reg Insulin Hm [Humulin 70-30 Vial] 20 unit SQ DAILY AT SUPPER 09/04/21 Linagliptin [Tradjenta] 1 tab PO DAILY 09/04/21 Pantoprazole [Protonix Tab] 40 mg PO DAILY #30 tab 09/04/21 Sertraline [Zoloft*] 25 mg PO DAILY 09/04/21 New Medications: Docusate [Colace Cap*] 100 mg PO DAILY #30 cap Ferrous Sulfate [Iron] 325 mg PO BID #60 tablet Pantoprazole [Protonix Tab] 40 mg PO DAILY #30 tab Physician Discharge Instructions: Patient presented with acute encephalopathy likely related to IV iron infusion. Patient with history of iron deficiency anemia and chronic disease. Patient recently evaluated at [facility]. She received transfusion but no work-up was done. Patient was given IV iron by her hematology prior to admission. Patient may have had a reaction to this. The patient was monitored overnight. Patient had a positive guaiac. Hemoglobin was monitored. Hemoglobin did drop from 10 to about 8 but remained stable. No need for transfusion was required. GI was consulted to further evaluate. GI recommended EGD. EGD showed small hiatal hernia with mild gastritis. Multiple erosions noted to the antrum. Biopsies from the antrum and small bowel were obtained. Patient has done well. Patient back to baseline. No evidence of stroke noted on CT scan and MRI. At discharge patient may continue with iron 325 mg 1 pill twice daily and Protonix 40 mg 1 pill daily. Recommend follow-up with GI in 2 weeks to follow-up his hospitalization. Patient will need to complete the GI work-up with colonoscopy as an outpatient. This could be done with the help of GI. Recommend follow-up with hematology in 1 to 2 weeks to follow-up this hospitalization. If IV iron is to be continued as an outpatient, consider IV iron infusion at a slower rate in the future. This can be further addressed by hematology. Recommend to recheck labCBC in 1 to 2 weeks to monitor progress. Recommend follow-up with PCP in 1 week to follow-up his hospitalization and continue her care. Patient with diabetes mellitus type 2. Overall stable. At discharge patient may continue with her current medications insulin 70/30 40 units every a.m. and 20 units subcu every p.m. Patient also takes Tradjenta 5 mg daily. Recommend to maintain blood sugar less than 140 fasting and less than 200 after meals. Further adjustment can be done by her PCP if blood sugars remain above 200. Will need to monitor for hypoglycemia. Further adjustment in her insulin may be required if blood sugars remain less than 100. Recommend follow-up with her PCP in 1 week to follow-up this hospitalization and further monitor her care. Recommend to recheck hemoglobin A1c every 3 months. Patient with hypertension. At discharge she may continue with carvedilol 3.125 mg 1 pill twice daily and losartan 100 mg daily. Recommend to maintain blood pressure less than 130/80. Further adjustment can be done by her PCP. Patient with chronic diastolic CHF. Overall stable. At discharge patient will continue with Lasix 40 mg 1 pill twice daily. Recommend to continue 1500 cc/day fluid restriction and low-salt diet. Recommend to monitor her weight daily. Further adjustment in medication can be done by her PCP. Patient with chronic renal disease stage III. Overall stable. Patient can follow-up with nephrology as an outpatient to further address. Recommend no further use of nonsteroidal anti-inflammatories. Future medications may need to be renally dosed. Patient with hyperlipidemia. At discharge patient will continue with her current medicationZocor 40 mg daily. Patient with constipation. Patient may take stool softener dailydocusate 100 mg daily. This will be provided. Continue with above recommendations for colonoscopy as an outpatient. Patient with depression. At discharge patient will continue with Zoloft 25 mg daily. Diet: ADA Activity: Fall precautions Followup: NONE,NONE [Primary Care Provider] - Time spent managing pt's care (in minutes): 55
[2021-09-04 16:35] VITALS: BP 132/60; TEMP 98.4
--- NOTE | 2021-09-29 19:03 | CON ---
Date of Consultation: 09/04/2021 Reason For Consultation: Iron-deficiency anemia. History Of Present Illness: The patient is an 86-year-old Afro-Mongolian female with history of diabe marci, hypertension, congestive heart failure, hyperlipidemia, and coronary artery disease, status post CABG. The patient presented to hospital due to altered mental status. During workup, she was found to have iron-deficiency anemia and presented to the GI service for further evaluation and care. The patient denies any melena, hematochezia, hematemesis, coffee-grounds emesis, hematuria, dysuria, milady ydipsia, chest pain, or shortness of breath. Past Medical History: Significant for diabetes, hypertension, hyperlipidemia, coronary artery diseas e status post CABG, chronic kidney disease, diastolic congestive heart failure, history of anemia of chronic disease and iron deficiency in the past, bilateral tubal ligation, laparoscopic cholecystecto my, cataract surgery, cystocele and rectocele repair, hysteroscopy, and D and C. Medications: Include Tylenol, aspirin, vitamin D3, Estrace, Lasix, insulin, lidocaine, losartan, mul tivitamin, Zocor, Travatan, Coreg, glucose. Allergies: NKDA. Social History: She is a , 10 children. Son of epilepsy. No tobacco. No alcohol. She l ashely at home. Family History: Father of colon cancer. Mother of diabetes and stroke. Review of Systems: The patient denies any melena, hematochezia, , coffee-ground emesis, hematuria, dysuria, po lydipsia, hemoptysis, hematemesis, and epistaxis. No chest pain, shortness of breath, seizure, synco pe, muscle aches, joint aches, backache, depression, and anxiety. Physical Examination: General: The patient afebrile. Vital Signs: Stable. The patient is 5 feet 5 inches, 200 pounds, BMI 33.4 kg/m2. She had a tempera ture of 97.5 degrees Fahrenheit, pulse 65, respirations 18, blood pressure 117/51, O2 saturation 94% to 100% on room air. HEENT: Normocephalic, atraumatic. Anicteric. Pupils equal, round, and reactive to light. Orophary nx clear. Neck: Supple. No masses. Respirations: Clear to auscultation bilaterally. Cardiac: Regular rate and rhythm. Gastrointestinal: Positive bowel sounds. Soft, nontender, and nondistended. No hepatosplenomegaly. Laboratory Data: The patient has a white count of 5.7, hemoglobin of 7.9, hematocrit 26, MCV of 75, platelet count of 154. PT of 11.9, INR of 1.03. The patient has a sodium 143, potassium 4.3, chlori de 113, bicarb 25, BUN of 45, creatinine of 1.73, calcium 8.3, magnesium 2.3. COVID-19 testing was n egative. CT chest, abdomen, and pelvis showed mild bilateral ground-glass opacities in the lungs, in dicative of alveolitis. Moderate amount of stool within the colon. Rectum is mildly distended with stool, otherwise negative. Impression: 1.Iron-deficiency anemia. Last colonoscopy was 2 years ago in [place], [place] by the patient's fami ly report. Father of colon cancer. 2.History of gastric reflux disease. 3.History of diabetes, hypertension, coronary artery disease, hyperlipidemia, status post coronary a rtery bypass graft, chronic kidney disease, and diastolic congestive heart failure. 4.History of anemia in the past, both anemia of chronic disease and iron-deficiency anemia; bilatera l tubal ligation; laparoscopic cholecystectomy; bilateral cataract surgery, cystocele and rectocele r epair, and hysteroscopy with dilation and curettage. Recommendation: 1.Proceed with EGD. 2.Serial H and H and transfuse p.r.n. 3.PPI therapy. 4.Keep the patient n.p.o. 5.Try to obtain prior colonoscopy report from 2 years ago performed in [place], [place] and consider repeat colonoscopy as needed. MANPREET/SHRUTHIL Voice ID: [id number] Report ID: [id number]
== END 2021-09-04 18:24 | disposition home or self-care (01) ==
LOC: ER 12:30 → ERHOLD 16:37 → 4TH 18:27
PROVIDERS: ADMIT Family Medicine; ATTEND Family Medicine
PROC: 0DB78ZX Excision of Stomach, Pylorus, Via Natural or Artificial Opening Endoscopic, Diagnostic (ICD-10-PCS; principal; 2021-09-03)
PROC: 0DB88ZX Excision of Small Intestine, Via Natural or Artificial Opening Endoscopic, Diagnostic (ICD-10-PCS; 2021-09-03)
DX: G93.40 Encephalopathy, unspecified (principal); K29.50 Unspecified chronic gastritis without bleeding; B96.81 Helicobacter pylori [H. pylori] as the cause of diseases classified elsewhere; K52.9 Noninfective gastroenteritis and colitis, unspecified; K25.9 Gastric ulcer, unspecified as acute or chronic, without hemorrhage or perforation; D50.9 Iron deficiency anemia, unspecified; K21.9 Gastro-esophageal reflux disease without esophagitis; K44.9 Diaphragmatic hernia without obstruction or gangrene; K59.00 Constipation, unspecified; I13.0 Hypertensive heart and chronic kidney disease with heart failure and stage 1 through stage 4 chronic kidney disease, or unspecified chronic kidney disease; I50.32 Chronic diastolic (congestive) heart failure; N18.30 Chronic kidney disease, stage 3 unspecified; E11.22 Type 2 diabetes mellitus with diabetic chronic kidney disease; D63.8 Anemia in other chronic diseases classified elsewhere; E78.5 Hyperlipidemia, unspecified; F32.A Depression, unspecified; I25.10 Atherosclerotic heart disease of native coronary artery without angina pectoris; Z95.1 Presence of aortocoronary bypass graft; Z20.822 Contact with and (suspected) exposure to COVID-19; Z79.4 Long term (current) use of insulin; Z79.82 Long term (current) use of aspirin; Z90.49 Acquired absence of other specified parts of digestive tract; Z80.0 Family history of malignant neoplasm of digestive organs; Z82.49 Family history of ischemic heart disease and other diseases of the circulatory system; Z83.3 Family history of diabetes mellitus
CPT/HCPCS: 93005; 87040 ×2; 85025 ×2; 80048 ×2; 36415; 86900; 83735 ×2; 86850; 88312; 85610; 86901; 82947 ×6; 80076; 83605; 88305; 84443; 85018; 85014; 84484; 84439; 83690; 83880; 71250; 74176; 70450; 71045; 70551; 97116; 97161; 99291; 99292; 43239; U0003; J2704; J2550; J1644; C9113; Q0138; G0378 ×4; J7050; J7030 ×2; J2405